=== PATIENT | female | born 1950 | race Caucasian/White ===

== ENCOUNTER 2021-02-25 09:44 | Emergency (ER) | payer MEDICARE, OTHER, SELFPAY ==
--- NOTE | ~2021-02-25 | XR_ITS ---
EXAMINATION: XR chest 2V DATE: 02/25/2021 10:24 INDICATION: Cough. TECHNIQUE: Frontal and lateral views of the chest were obtained. COMPARISON: Chest 2 views 01/23/2009 FINDINGS: There is mild scarring at the lung apices. No pleural effusion or pneumothorax. The heart s ize is normal. Pectus excavatum is noted. IMPRESSION: 1. Stable mild scarring at the lung apices. Reviewed, dictated and finalized at location A.
[2021-02-25 10:03] VITALS: BP 127/62; PULSE 126; RESP 18; TEMP 36.7; O2SAT 99
--- NOTE | 2021-02-25 10:14 | ED.GENADULT ---
HPI - General Adult General Chief complaint: Upper Respiratory Infection Stated complaint: Cough Source: patient Mode of arrival: ambulatory Limitations: no limitations History of Present Illness HPI narrative: Patient presents for evaluation of respiratory symptoms. She indicates she is experienced a nonproductive cough for the last 4 days. This morning she woke from sleep with a sore throat and feeling hoarse. No fever, chills, nausea, vomiting. She has been taking dextromethorphan for her symptoms. She has been taking an unknown allergy medication as well. Denies smoking. States that her daughter recently had a cold and also was treated for strep pharyngitis on Friday of last week. Her grandchildren are currently living with her and her daughter. No history of Covid. She has not been immunized for Covid. She states she was admitted for pneumonia about 5 years ago. She states that her symptoms currently are consistent with those that precipitated her hospitalization 5 years ago. Sounds like she is under the care of pulmonology, seeing them once annually. Related Data Home Medications Medication Instructions Recorded Confirmed montelukast 10 mg PO DAILY 02/25/21 02/25/21 Allergies Allergy/AdvReac Type Severity Reaction Status Date / Time Sulfa (Sulfonamide Allergy Mild Rash Unverified 02/25/21 10:10 Antibiotics) Review of Systems Review of Systems: Narrative: CONSTITUTIONAL: Denies fever, chills, or sweats. EYES: Denies visual changes, redness, or discharge. ENT: Reports sore throat. Denies rhinorrhea, congestion,or otalgia. CARDIOVASCULAR: Denies chest pain, palpitations, or edema. RESPIRATORY: Reports cough. Denies shortness of breath. GASTROINTESTINAL: Denies abdominal pain, nausea, vomiting, or diarrhea. GENITOURINARY: Denies dysuria or hematuria. SKIN: Denies rash or itching. MUSCULOSKELETAL: Denies back pain, joint pain, or myalgia. NEUROLOGIC: Denies headache, numbness, dizziness, or weakness. PSYCHIATRIC: Denies anxiety or depression. [facility] Past Medical History Medical History (Updated 02/25/21 @ 11:07 by Anthony Whaley, YUSUF, ) Reactive airway disease Surgical History Surgical History (Updated 02/25/21 @ 10:18 by Anthony Whaley, YUSUF, ) H/O lumpectomy History of delivery Family History Family History Mother No pertinent past medical history Social History Social History Alcohol intake: never Substance use: never Living arrangements: with family Gender identity (if verbalized by the patient): Female Spiritual care concerns: No Exam Narrative: Exam Narrative: GENERAL: Well-appearing, well-nourished, and in no acute distress. HEAD: Normocephalic, atraumatic. EYES: PERRLA and EOMI. ENT: Nares clear, no rhinorrhea or epistaxis. Mucous membranes moist. Oropharynx without tonsillar hypertrophy exudate or other lesions. Bilateral TMs pearly reynolds nonbulging NECK: Supple. No adenopathy or masses. No carotid bruits or JVD CHEST: Mild wheezing diffusely in posterior lung sales. Cough noted on exam. No respiratory distress. No wheezes rales or rhonchi HEART: Heart rate 122. Normal rhythm. No murmur heard. Normal peripheral pulses. ABDOMEN: Soft, nontender, nondistended, normal active bowel sounds. EXTREMITIES: Normal range of motion. No edema. SKIN: Warm, dry, no rash. NEURO: No focal deficits. Alert and oriented x3. PSYCH: Normal mood and affect. Course Course Emergency Course: This is a 70-year-old female who presented with complaints of cough and sore throat. Physical exam she was tachycardic. EKG was conducted and showed persistent tachycardia, although improved from my initial evaluation. Chest x-ray was indicative of mild scarring at the lung apices. I offered to give her a breathing treatment and steroids, which she declined.
--- NOTE | 2021-02-25 10:37 | ECG_ITS ---
Measurements Intervals [place] Rate: 112 P: 69 GA: 186 QRS: 74 QRSD: 88 T: 53 QT: 323 QTc: 441 Interpretive Statements SINUS TACHYCARDIA POSSIBLE LEFT ATRIAL ENLARGEMENT ABNORMAL ECG Electronically Signed On 02-25-2021 12:45:55 CDT by Seun Sandoval D.O.
== END 2021-02-25 11:14 | disposition home or self-care (01) ==
PROVIDERS: Emergency Provider Nurse Practitioner; PCP Physician Assistant
DX: J45.901 Unspecified asthma with (acute) exacerbation (principal); B37.0 Candidal stomatitis; Z20.822 Contact with and (suspected) exposure to COVID-19
CPT/HCPCS: 71046; 87081; 87426; 87880; 93005; 99213; C9803; G0463

== ENCOUNTER 2022-08-12 04:22 | Inpatient (IN) | payer MEDICARE, SELFPAY ==
[2022-08-12] VITALS (13 sets, daily range): BP systolic 97–157; BP diastolic 36–85; PULSE 90–106; RESP 16–94; TEMP 36.4–38.2; O2SAT 18–100; BMI 32.7
--- NOTE | ~2022-08-12 | CT_ITS ---
EXAMINATION: CT abdomen pelvis w con DATE: 08/12/2022 06:10 INDICATION: Lower abdominal pain TECHNIQUE: Computed tomography (CT) of the abdomen and pelvis was performed without intravenous contr ast. with 100 mL Omnipaque-350 The dose-length product was 1058.16 mGy-cm. COMPARISON: 12/28/2004 FINDINGS: Mild atelectasis in the right middle lobe and in the dependent lingula and left lower lobe. Heart siz e is normal. No pericardial or pleural effusion. Diffuse hepatic steatosis with focal sparing along t he yolanda hepatis. Dependently layering sludge versus gallstones in the gallbladder which is without w all thickening or pericholecystic inflammatory change to suggest acute cholecystitis. Pancreas, splee n, bilateral adrenal glands and kidneys are normal. Bladder, uterus and bilateral adnexa are normal. Normal small bowel and appendix. Mild diverticulosis along the sigmoid colon with localized wall thic kening and adjacent inflammatory stranding surrounding a diverticulum at the mid sigmoid colon consis tent with diverticular colitis. There are few tiny foci of gas within the median adjacent mesentery b ut no more remote free intraperitoneal gas consistent with microperforation. Mild lumbar and moderate lower thoracic spondylosis. Trace amount of intraperitoneal fluid in the deep pelvis. No abscess. No pathologically enlarged abdominal or pelvic lymphadenopathy. Mild lumbar and moderate lower thoracic spondylosis. IMPRESSION: 1. Acute sigmoid diverticulitis with microperforation but no abscess. 2. Diffuse hepatic steatosis. 3. Sludge versus gallstones in the dependent aspect of the otherwise normal gallbladder. Reviewed, dictated and finalized at location A. E [employer]SEM[employer] UP WORKER IMPRESSION: 1. Acute sigmoid diverticulitis with microperforation but no abscess. 2. Diffuse hepatic steatosis. 3. Sludge versus gallstones in the dependent aspect of the otherwise normal gal lbladder.
--- NOTE | ~2022-08-12 | CT_ITS ---
CT Abdomen and Pelvis with contrast. History: Diverticulitis with perforation. Spiral CT of the abdomen and pelvis was performed after the administration of intravenous contrast. 1 00 cc of Omnipaque 350 was administered intravenously without complication. Dose reduction technique was used on this scan by utilizing automated exposure control and iterative reconstruction technique. The dose-length product (DLP) was 212.11 mGy-cm. COMPARISON: 08/12/2022 Findings: Scans through the lung bases demonstrate minimal pleural effusions, with probable patchy bi basilar atelectatic changes. Diffuse fatty infiltration of the liver again noted. There is cholelithiasis and/or gallbladder sludg e. The spleen, pancreas, adrenals and kidneys are within normal limits. No evidence of aortic aneury sm. No lymphadenopathy is seen. There is no evidence of bowel obstruction. Extensive wall thickening of the sigmoid colon is present. There are several pockets of fluid about the sigmoid colon, compatible with abscesses and/or phlegmo nous change, with several small bubbles of extraluminal air present. Collection along the right side of the sigmoid colon measures approximately 4.3 x 2.2 cm (axial image 140). Probable developing colle ction in the left posterior pelvis (axial image 136), possibly a small more superior fluid collection (axial image 118). Extensive inflammatory changes are present in the mesentery and perirectal fat. Images through the pelvis were performed. Urinary bladder unremarkable. No adnexal mass evident. Impression: Findings compatible with sigmoid diverticulitis, with 3 probable small abscesses or developing absces ses/phlegmons, as detailed above. Several small bubbles of free air are again present, consistent wit h perforation. Diffuse fatty infiltration of liver. Cholelithiasis and/or gallbladder sludge. Minimal pleural effusions with bibasilar atelectatic change. Reviewed, dictated and finalized at location M. SIOLOGIST Impression: Findings compatible with sigmoid diverticulitis, with 3 probable small abscesse s or developing abscesses/phlegmons, as detailed above. Several small bubbles o f free air are again present, consistent with perforation. Diffuse fatty infiltration of liver. Cholelithiasis and/or gallbladder sludge. Minimal pleural effusions with bibasilar atelectatic change.
[2022-08-12] MEDS: SODIUM CHLORIDE 0.9% IV 1,000 ML 999 ML IV CONT (04:46)
[2022-08-12] MEDS: HYDROmorphone HCL INJ (*CRX) 1 MG/ML SYR IV PUSH (04:46)
[2022-08-12 04:48] LABS: Basophils Percent Auto 0.2 % (0.2-1.2); Eosinophils Absolute Auto 0.1 K/mm3 (0-0.3); Eosinophils Percent Auto 0.6 % (0-4.4); Hematocrit 41.4 % (37.0-47.0); Hemoglobin 13.8 g/dL (12.0-15.0); Immature Granulocyte Absolute 0.15 K/mm3 (0.00-0.031); Immature Granulocyte Percent A 1.1 % (0-0.5); Lymphocytes Absolute Auto 1.83 K/mm3 (0.9-3.2); Lymphocytes Percent Auto 13.9 % (18.3-44.2); Mean Corpuscular HGB Conc 33.3 g/dl (32-36); Mean Corpuscular Hemoglobin 29.9 pg (26-34); Mean Corpuscular Volume 89.6 fl (80-100); Mean Platelet Volume 9.9 fl (7.4-10.4); Monocytes Absolute Auto 0.4 K/mm3 (0.1-0.6); Neutrophils Absolute Auto 10.7 K/mm3 (1.3-6.7); Neutrophils Percent Auto 81.2 % (45.5-73.1); Platelet Count Result 228 k/mm3 (150-375); Red Blood Count 4.62 M/mm3 (4.2-5.4); Red Cell Distribution Width 15.1 % (11.5-14.5); White Blood Count 13.2 K/mm3 (4.5-10.0)
--- NOTE | 2022-08-12 04:50 | ED.ABDPAIN ---
HPI - Abdominal Pain General Chief Complaint: Abdominal Pain Stated Complaint: abd pain Time Seen by Provider: 08/12/22 04:37 History of Present Illness HPI narrative: 72-year-old female presenting to the emergency department for evaluation of lower abdominal pain that started approximately 2 AM. Patient reports that she had been feeling fine during the day and she had fallen asleep in her chair and she woke up at 2 AM and was transitioning to bed. Patient reports that she was walking upstairs she had onset of lower abdominal cramping. Patient additionally felt that if she had had a bowel movement that this would improve symptoms but patient states it was too uncomfortable to sit down. Patient describes pain as bilateral lower abdominal pain. Patient denies any radiation of the pain. Patient denies any associated back pain with this. Patient also denies any associated nausea vomiting or change in bowel habits. Patient does have a prior surgical history of a approximately 35 years ago. Patient does not suspect that she has had a prior cholecystectomy or appendectomy. Related Data Home Medications Medication Instructions Recorded Confirmed montelukast 10 mg tablet 10 mg PO DAILY 02/25/21 02/25/21 Allergies Allergy/AdvReac Type Severity Reaction Status Date / Time Sulfa (Sulfonamide Allergy Mild Rash Verified 08/12/22 04:42 Antibiotics) Review of Systems Review of Systems: CONSTITUTIONAL: Denies fever, chills, or sweats. EYES: Denies visual changes, redness, or discharge. ENT: Denies rhinorrhea, congestion, sore throat, or otalgia. CARDIOVASCULAR: Denies chest pain, palpitations, or edema. RESPIRATORY: Denies cough or dyspnea. GASTROINTESTINAL: See HPI GENITOURINARY: Denies dysuria or hematuria. SKIN: Denies rash or itching. MUSCULOSKELETAL: Denies back pain, joint pain, or myalgia. NEUROLOGIC: Denies headache, numbness, or weakness. [facility] Past Medical History Medical History (Updated 08/12/22 @ 06:59 by Cirilo Rae MD) Reactive airway disease Surgical History Surgical History (Updated 02/25/21 @ 10:18 by Anthony Whaley, YUSUF, ) H/O lumpectomy History of delivery Family History Family History Mother No pertinent past medical history Social History Social History Alcohol intake: never Substance use: never Gender identity (if verbalized by the patient): Female Spiritual care concerns: No Exam Narrative: APPEARANCE: Well appearing, no pain, no distress, well-nourished. HEAD: normocephalic, atraumatic. EYES: PERRLA/EOMI, conjunctivae clear. NOSE: Normal no drainage EARS:TMS clear with good light reflex. THROAT: Pharynx clear, no exudate. NECK: Supple. No adenopathy, no masses. RESPIRATORY: Airway patent, respirations nonlabored. Clear to auscultation bilaterally, no rales, rhonchi, wheezing. CARDIOVASCULAR: Regular rate and rhythm without murmurs rubs or gallops. ABDOMINAL: Decreased bowel sounds, lower abdominal tenderness bilaterally. MUSCULOSKELETAL: Moves all extremities. Strength/ROM intact, No edema, No calf tenderness. NEURO: Alert. Cranial nerves II through XII intact. Grossly intact SKIN: Warm, dry. Normal Color Course Course Emergency Course: Patient did have lower abdominal tenderness localized peritonitis. CT scan was ordered to rule out perforation, appendicitis, colitis, diverticulitis. Patient CT scan did show evidence of sigmoid diverticulitis with perforation without abscess. Patient was started on Zosyn. Blood cultures are pending. Patient was also treated with IV fluids. Case was discussed with surgery and they will see the patient as consult. Patient was admitted to the hospitalist and made n.p.o. Patient and family were updated on the results of the work-up and plan for admission. All questions and concerns were ad
[2022-08-12 04:51] LABS: Add Urine Microscopic? YES; Appearance Urine Clear (Clear); Bilirubin Urine Negative (Negative); Blood Urine Trace-Intact (Negative); Color Urine Light Yellow (Yellow); Glucose Urine UA Negative (Negative); Ketones Urine Negative (Negative); Leukocyte Esterase Ur Negative LEU/UL (Negative); Nitrate Urine Negative (Negative); Protein Urine Negative (Negative); Urobilinogen Urine 0.2 mg/dL (<2.0)
[2022-08-12 04:57] LABS: Mucus Urine Rare /lpf; Squamous Epithelial Cell Urine Occasional /hpf (Few); WBC Urine 0-3 /hpf
[2022-08-12 05:02] LABS: Alanine Aminotransferase 38 U/L (6-35); Albumin Level 4.5 g/dL (3.5-5.1); Alkaline Phosphatase 144 U/L (38-126); Anion Gap 8 mmol/L (8-16); Aspartate Amino Transferase 32 U/L (14-36); Bilirubin,Total 0.6 mg/dL (0.2-1.3); Blood Urea Nitrogen 16 mg/dL (7-17); Carbon Dioxide 29 mmol/L (22-30); Chloride 104 mmol/L (98-107); Estimated CRCL calculation 78 ml/min; Estimated Glomerular Filt Rate > 60; Glucose 128 mg/dL (65-110); Potassium 3.7 mmol/L (3.4-5.0); Sodium 141 mmol/L (137-145)
[2022-08-12 07:35] LABS: Prothrombin Time 13.2 Seconds (11.1-14.7)
[2022-08-12 07:36] LABS: Partial Thromboplastin Time 31.3 SECONDS (22.3-36.8)
[2022-08-12] MEDS: SODIUM CHLORIDE 0.9% IV 1,000 ML 100 ML IV CONT ×2 (08:02→16:01)
[2022-08-12] MEDS: ONDANSETRON INJ 4 MG/2 ML VIAL IV PUSH (08:02)
[2022-08-12] MEDS: HYDROmorphone HCL INJ (*CRX) 1 MG/ML SYR 0.5 MG IV PUSH ×3 (08:49→19:56)
[2022-08-12 08:52] LABS: Influenza A QL RT-PCR Negative (Negative); Influenza B QL RT-PCR Negative (Negative); SARS-CoV-2 RNA PCR Negative
--- NOTE | 2022-08-12 09:03 | ADMGEN ---
This patient, Breanna Anton, was admitted to 2 Medical Room 241-01. Patient/family oriented to hospital policies and general routines including ID bracelet, bed and alarms, visiting hours, pain management, procedures, bathroom and other care routines, personal items, smoking policy, room service/diet, and visiting hours. Information on how to activate the Rapid Response Team has been discussed. Patient/Family are encouraged to report perceived risks to care and to ask questions if they do not understand what they are told or what they should do.
--- NOTE | 2022-08-12 12:17 | PM.IMHP ---
H&P: HPI History of Present Illness Date/Time: 08/12/22 12:17 Chief Complaint: abdominal pain Narrative: ED-HPI narrative: 72-year-old female presenting to the emergency department for evaluation of lower abdominal pain that started approximately 2 AM.? Patient reports that she had been feeling fine during the day and she had fallen asleep in her chair and she woke up at 2 AM and was transitioning to bed.? Patient reports that she was walking upstairs she had onset of lower abdominal cramping.? Patient additionally felt that if she had had a bowel movement that this would improve symptoms but patient states it was too uncomfortable to sit down.? Patient describes pain as bilateral lower abdominal pain.? Patient denies any radiation of the pain.? Patient denies any associated back pain with this.? Patient also denies any associated nausea vomiting or change in bowel habits.? Patient does have a prior surgical history of a approximately 35 years ago.? Patient does not suspect that she has had a prior cholecystectomy or appendectomy. patient is 72-year-old female with no significant GI history presented emergency department with complaint of low abdominal pain, patient states she wants to have a BM but pain is so severe unable to sit on the toilet, emergency department to further evaluate patient had a CT scan of the abdomen it showed acute sigmoid diverticulitis with microperforation but no abscess. patient started on Zosyn will continue with bowel rest except sips of water, will continue conservative management patient be seen surgery service and further recommendation to follow. patient admitted as a and patient with diverticulitis and microperforation, patient will stay in the hospital for 2 midnights. Review of Systems Review of Systems: CONSTITUTIONAL: Denies fever, chills, or sweats. EYES: Denies visual changes, redness, or discharge. ENT: Denies rhinorrhea, congestion, sore throat, or otalgia. CARDIOVASCULAR: Denies chest pain, palpitations, or edema. RESPIRATORY: Denies cough or dyspnea. GASTROINTESTINAL: See HPI GENITOURINARY: Denies dysuria or hematuria. SKIN: Denies rash or itching. MUSCULOSKELETAL: Denies back pain, joint pain, or myalgia. NEUROLOGIC: Denies headache, numbness, or weakness. [facility] Past Medical History Medical History (Updated 08/12/22 @ 06:59 by Cirilo Rae MD) Reactive airway disease Surgical History Surgical History (Updated 02/25/21 @ 10:18 by Anthony Whaley, IT PROGRAM MANAGER, ) H/O lumpectomy History of delivery Family History Family History Mother No pertinent past medical history Social History Social History Smoking status: Never smoker Alcohol intake: never Substance use: never Lack of Transportation: No Lack of Food: Never True Current Housing: I Have Housing Concerned About Future Housing: No Difficulty Paying Gas/Electric Bills: No Difficulty Paying for Meds: No Currently Unemployed: No Education: Bachelor's Degree Difficulty w/ Childcare or Family Care: No Gender identity (if verbalized by the patient): Female Spiritual care concerns: No Meds Home Medications and Allergies Home Medications Medication Instructions Recorded Confirmed Type montelukast 10 mg tablet 10 mg PO DAILY 02/25/21 02/25/21 History Allergies Allergy/AdvReac Type Severity Reaction Status Date / Time Sulfa (Sulfonamide Allergy Mild Rash Verified 08/12/22 10:45 Antibiotics) Vital Signs Vital Signs - 24 hr 08/12/22 04:25 08/12/22 04:55 08/12/22 05:01 Temperature 97.6 F Pulse Rate 95 Respiratory Rate 18 Blood Pressure 157/85 H 122/66 Pulse Oximetry 97 100 100 Oxygen Delivery Room Air 08/12/22 05:02 08/12/22 05:15 08/12/22 05:30 Temperature Pulse Rate Respiratory Rate Blood Pressure
--- NOTE | 2022-08-12 13:38 | PM.CNGS ---
Assessment and Plan Assessment and plan (1) Diverticulitis of colon with perforation: Code(s): K57.20 - Diverticulitis of large intestine with perforation and abscess without bleeding Status: Acute Assessment and Plan: Have reviewed the CT and discussed the findings with the patient. She is evidence of sigmoid diverticulitis with microperforation. She is hemodynamically stable and her exam only shows focal tenderness without distant peritoneal signs. Will continue management with IV antibiotics, bowel rest, and IV fluids at this time. Will slowly introduce diet if her symptoms are continuing to improve. Discussed with patient that if she shows signs of sepsis, peritonitis, or other worsening findings, she could require emergent exploratory laparotomy. History of Present Illness Consult details Consult date: 08/12/22 Reason for consult: other (Diverticulitis) Narrative: This is a 72-year-old woman who I am asked to see for diverticulitis with microperforation. She presented to the emergency department this morning with lower pain that started middle the night. She had never experienced pain like this the past. She has no prior history diverticulitis. She did have a colonoscopy several years ago. She states that her mother has had diverticulitis. She denies any family history of colorectal cancer. She denies any fevers, nausea, vomiting, or change in bowel habits. She denies any hematochezia or melena. CT emergency department showed evidence of sigmoid diverticulitis with micro perforation. There was no evidence of abscess were distant free air. She was then admitted for further treatment. Review of Systems Review of Systems: All systems reviewed & are unremarkable except as noted in HPI and below Constitutional: Constitutional: Denies chills and Denies fever(s) Eyes: Eyes: Denies change in vision ENT: Denies hearing loss, Denies neck pain and Denies sore throat Cardiovascular: Cardiovascular: Denies chest pain and Denies dyspnea Respiratory: Respiratory: Denies cough, Denies dyspnea and Denies wheezing Gastrointestinal: Gastrointestinal: Reports as per HPI Genitourinary: Genitourinary: Denies hematuria and Denies dysuria Musculoskeletal: Musculoskeletal: Denies arthralgias, Denies joint swelling and Denies neck pain Allergic/Immunologic: Allergic/Immunologic: Denies wheezing [facility] Past Medical History Medical History (Updated 08/12/22 @ 06:59 by Cirilo Rae MD) Reactive airway disease Surgical History Surgical History (Updated 02/25/21 @ 10:18 by YUSUF Rowan, ) H/O lumpectomy History of delivery Family History Family History (Updated 08/12/22 @ 13:41 by Nolan Tijerina DO) Mother No pertinent past medical history Diverticulitis large intestine Social History Social History Smoking status: Never smoker Alcohol intake: never Substance use: never Lack of Transportation: No Lack of Food: Never True Current Housing: I Have Housing Concerned About Future Housing: No Difficulty Paying Gas/Electric Bills: No Difficulty Paying for Meds: No Currently Unemployed: No Education: Bachelor's Degree Difficulty w/ Childcare or Family Care: No Gender identity (if verbalized by the patient): Female Spiritual care concerns: No Meds Home Medications and Allergies Home Medications Medication Instructions Recorded Confirmed Type montelukast 10 mg tablet 10 mg PO DAILY 02/25/21 02/25/21 History Allergies Allergy/AdvReac Type Severity Reaction Status Date / Time Sulfa (Sulfonamide Allergy Mild Rash Verified 08/12/22 10:45 Antibiotics) Vital Signs Vital Signs - 24 hr 08/12/22 04:25 08/12/22 04:55 08/12/22 05:01 Temperature 36.4 C Pulse Rate 95 Respiratory Rate 18 Blood Pressure 157/85 H 122/66 Pulse Oximetry 97 100 100 Oxygen Delivery Leonora
[2022-08-12] MEDS: SODIUM CHLORIDE 0.9% IV 250 ML IV CONT (15:27)
--- NOTE | 2022-08-12 15:28 | PC.NURSE ---
bolus administered from current IV bag
[2022-08-13] MEDS: HYDROmorphone HCL INJ (*CRX) 1 MG/ML SYR 0.5 MG IV PUSH ×4 (00:31→20:22)
[2022-08-13] MEDS: SODIUM CHLORIDE 0.9% IV 1,000 ML 100 ML IV CONT (03:19)
[2022-08-13 05:29] VITALS: BP 110/50; PULSE 108; RESP 16; TEMP 36.9; O2SAT 94
[2022-08-13 06:07] LABS: Hematocrit 34.3 % (37.0-47.0); Hemoglobin 11.1 g/dL (12.0-15.0); Mean Corpuscular HGB Conc 32.4 g/dl (32-36); Mean Corpuscular Hemoglobin 29.8 pg (26-34); Mean Corpuscular Volume 92.2 fl (80-100); Mean Platelet Volume 11.1 fl (7.4-10.4); Platelet Count Result 177 k/mm3 (150-375); Red Blood Count 3.72 M/mm3 (4.2-5.4); Red Cell Distribution Width 15.2 % (11.5-14.5); White Blood Count 18.2 K/mm3 (4.5-10.0)
[2022-08-13 06:24] LABS: Alanine Aminotransferase 34 U/L (6-35); Albumin Level 3.4 g/dL (3.5-5.1); Alkaline Phosphatase 81 U/L (38-126); Anion Gap 6 mmol/L (8-16); Aspartate Amino Transferase 32 U/L (14-36); Bilirubin,Total 1.5 mg/dL (0.2-1.3); Blood Urea Nitrogen 16 mg/dL (7-17); Calcium 7.9 mg/dL (8.4-10.2); Carbon Dioxide 26 mmol/L (22-30); Chloride 103 mmol/L (98-107); Estimated CRCL calculation 64 ml/min; Estimated Glomerular Filt Rate > 60; Glucose 113 mg/dL (65-110); Magnesium 1.7 mg/dL (1.6-2.3); Potassium 3.6 mmol/L (3.4-5.0); Sodium 135 mmol/L (137-145)
--- NOTE | 2022-08-13 08:12 | PC.NURSE ---
Patient's IV positional and in antecubital vein. Offered to move IV site - patient refused and states she prefers to deal with it and keep her arm straight.
--- NOTE | 2022-08-13 13:01 | PM.PNGS ---
Progress Note: A&P Assessment and Plan (1) Diverticulitis of colon with perforation: Code(s): K57.20 - Diverticulitis of large intestine with perforation and abscess without bleeding Status: Acute Assessment and Plan: Patient feeling a little better, even though WBC up from yesterday. Will try clear liquids today. Repeat labs in AM. Continue Zosyn IV. Subjective Subjective Date/Time Seen: 08/13/22 13:01 Interval history: Pain improving. Fever yesterday, but none since 2pm. Passing flatus. Exam GI: Inspection: non-distended GI Palp: Yes Tenderness to palpation present (GI) (LLQ) Objective Data Vital Signs Vital Signs: Vital Signs - 24 hr 08/12/22 14:00 08/12/22 20:00 08/12/22 20:22 Temperature 38.2 C H 37.0 C Pulse Rate 106 H 105 H Respiratory Rate 94 H 16 Blood Pressure 97/36 L 122/47 L Pulse Oximetry 18 L 96 Oxygen Delivery Room Air 08/13/22 05:29 08/13/22 08:07 Temperature 36.9 C Pulse Rate 108 H Respiratory Rate 16 Blood Pressure 110/50 L Pulse Oximetry 94 Oxygen Delivery Room Air Intake/Output Intake/Output: Intake & Output 08/10/22 08/11/22 08/12/22 08/13/22 23:59 23:59 23:59 23:59 Intake Total 2400 1100 Balance 2400 1100 Meds/Results Medications: Active Medications Generic Name Dose Route Start Last Admin Trade Name Freq PRN Reason Stop Dose Admin Acetaminophen 1,000 mg 08/13/22 13:00 Acetaminophen 500 Mg Tablet PO Q6H PRN Mild Pain (1-3) or Fever Hydromorphone HCl 0.5 mg 08/12/22 06:59 08/13/22 10:37 Hydromorphone Hcl Inj (*Crx) 1 Mg/Ml Syr IV PUSH 0.5 mg Q4H PRN Administration Pain Rated 7-10 Piperacillin/Tazobactam/Dextrose 3.375 gm in 50 mls @ 100 mls/hr 08/12/22 14:00 08/13/22 12:10 Zosyn 3.375 Gm/D5w 50ml Pm IVPB 100 mls/hr Q6HR PAO Administration Ondansetron HCl 4 mg 08/12/22 06:59 Ondansetron Inj 4 Mg/2 Ml Vial IV PUSH Q4H PRN Nausea Radiology Results: ITS Impressions Abdomen/Pelvis CT 08/12/22 09:58 IMPRESSION: 1. Acute sigmoid diverticulitis with microperforation but no abscess. 2. Diffuse hepatic steatosis. 3. Sludge versus gallstones in the dependent aspect of the otherwise normal gallbladder. Labs Labs: Laboratory Results - last 24 hr 08/13/22 08/13/22 05:05 05:05 WBC 18.2 H RBC 3.72 L Hgb 11.1 L Hct 34.3 L MCV 92.2 MCH 29.8 MCHC 32.4 RDW 15.2 H Plt Count 177 MPV 11.1 H Sodium 135 L Potassium 3.6 Chloride 103 Carbon Dioxide 26 Anion Gap 6 L BUN 16 Creatinine 0.80 Estim Creat Clear Calc 64 Estimated GFR > 60 Glucose 113 H Calcium 7.9 L Magnesium 1.7 Total Bilirubin 1.5 H AST 32 ALT 34 Alkaline Phosphatase 81 Total Protein 6.0 L Albumin 3.4 L
--- NOTE | 2022-08-13 13:28 | PM.IMPN ---
Progress Note: A&P Assessment and Plan (1) Diverticulitis of colon with perforation: Code(s): K57.20 - Diverticulitis of large intestine with perforation and abscess without bleeding Status: Acute Assessment and Plan: ED-HPI narrative: 72-year-old female presenting to the emergency department for evaluation of lower abdominal pain that started approximately 2 AM.? Patient reports that she had been feeling fine during the day and she had fallen asleep in her chair and she woke up at 2 AM and was transitioning to bed.? Patient reports that she was walking upstairs she had onset of lower abdominal cramping.? Patient additionally felt that if she had had a bowel movement that this would improve symptoms but patient states it was too uncomfortable to sit down.? Patient describes pain as bilateral lower abdominal pain.? Patient denies any radiation of the pain.? Patient denies any associated back pain with this.? Patient also denies any associated nausea vomiting or change in bowel habits.? Patient does have a prior surgical history of a approximately 35 years ago.? Patient does not suspect that she has had a prior cholecystectomy or appendectomy. 08/13/2022 interval history: patient is 72-year-old female with no significant GI history presented emergency department with complaint of low abdominal pain, patient stated she wants to have a BM but pain is so severe unable to sit on the toilet, emergency department to further evaluate patient had a CT scan of the abdomen it showed acute sigmoid diverticulitis with microperforation but no abscess.Today patient states pain is little better in passing gas, patient started on Zosyn will continue with bowel rest except sips of water, will continue conservative management patient will be seen surgery service and further recommendation to follow. (2) Reactive airway disease: Code(s): J45.909 - Unspecified asthma, uncomplicated Status: Acute Assessment and Plan: remains clinically stable will continue Singulair and start bronchodilator as needed. Subjective Date/time seen: 08/13/22 13:28 ED-HPI narrative: 72-year-old female presenting to the emergency department for evaluation of lower abdominal pain that started approximately 2 AM.? Patient reports that she had been feeling fine during the day and she had fallen asleep in her chair and she woke up at 2 AM and was transitioning to bed.? Patient reports that she was walking upstairs she had onset of lower abdominal cramping.? Patient additionally felt that if she had had a bowel movement that this would improve symptoms but patient states it was too uncomfortable to sit down.? Patient describes pain as bilateral lower abdominal pain.? Patient denies any radiation of the pain.? Patient denies any associated back pain with this.? Patient also denies any associated nausea vomiting or change in bowel habits.? Patient does have a prior surgical history of a approximately 35 years ago.? Patient does not suspect that she has had a prior cholecystectomy or appendectomy. 08/13/2022 interval history: patient is 72-year-old female with no significant GI history presented emergency department with complaint of low abdominal pain, patient stated she wants to have a BM but pain is so severe unable to sit on the toilet, emergency department to further evaluate patient had a CT scan of the abdomen it showed acute sigmoid diverticulitis with microperforation but no abscess.Today patient states pain is little better in passing gas, patient started on Zosyn will continue with bowel rest except sips of water, will continue conservative management patient will be seen surgery service and further recommendation to follow. Exam Narrative: Patient is comfortable, NAD HEENT: eyes are clear and none icteric LUNGS: normal respiratory effort ABD: distended Lower extremities: no edema SKIN: nonjaundiced Neuro: grossly intact. Obje
[2022-08-13 14:15] VITALS: BP 111/55; PULSE 107; RESP 16; TEMP 37; O2SAT 94
[2022-08-13] MEDS: ACETAMINOPHEN 500 MG TABLET 1000 MG PO (15:19)
[2022-08-13 20:17] VITALS: BP 125/70; PULSE 109; RESP 20; TEMP 36.9; O2SAT 96
[2022-08-14 03:20] VITALS: BP 107/67; PULSE 116; RESP 20; TEMP 37.5; O2SAT 97
[2022-08-14] MEDS: HYDROmorphone HCL INJ (*CRX) 1 MG/ML SYR 0.5 MG IV PUSH ×4 (03:27→21:28)
[2022-08-14 05:52] LABS: Hematocrit 32.4 % (37.0-47.0); Hemoglobin 10.6 g/dL (12.0-15.0); Mean Corpuscular HGB Conc 32.7 g/dl (32-36); Mean Corpuscular Volume 88.5 fl (80-100); Mean Platelet Volume 10.6 fl (7.4-10.4); Platelet Count Result 174 k/mm3 (150-375); Red Blood Count 3.66 M/mm3 (4.2-5.4); Red Cell Distribution Width 14.9 % (11.5-14.5); White Blood Count 18.7 K/mm3 (4.5-10.0)
[2022-08-14 06:08] LABS: Alanine Aminotransferase 29 U/L (6-35); Albumin Level 3.1 g/dL (3.5-5.1); Alkaline Phosphatase 81 U/L (38-126); Anion Gap 6 mmol/L (8-16); Aspartate Amino Transferase 31 U/L (14-36); Bilirubin,Total 1.3 mg/dL (0.2-1.3); Blood Urea Nitrogen 12 mg/dL (7-17); Calcium 8.1 mg/dL (8.4-10.2); Carbon Dioxide 25 mmol/L (22-30); Chloride 106 mmol/L (98-107); Estimated CRCL calculation 73 ml/min; Estimated Glomerular Filt Rate > 60; Glucose 139 mg/dL (65-110); Magnesium 1.9 mg/dL (1.6-2.3); Potassium 3.2 mmol/L (3.4-5.0); Sodium 137 mmol/L (137-145)
[2022-08-14] MEDS: POTASSIUM CHLORIDE 20 MEQ TABLET 40 MEQ PO (08:53)
--- NOTE | 2022-08-14 09:34 | PM.PNGS ---
Progress Note: A&P Assessment and Plan (1) Diverticulitis of colon with perforation: Code(s): K57.20 - Diverticulitis of large intestine with perforation and abscess without bleeding Status: Acute Assessment and Plan: WBC still up slightly today at 18,700, abdominal pain about the same today but overall improved since admission. Still seems very tender on exam. Repeat CT abdomen/pelvis to re-evaluate Continue IV Zosyn. Plan I have discussed the patient's case and plan of care with Dr. Tijerina. Subjective Subjective Date/Time Seen: 08/14/22 09:34 Patient reports: no new complaints, tolerating liquids well, flatus, no bowel movement and afebrile Interval history: Chart reviewed. Patient reports feeling about the same as yesterday. She is comfortable at rest, but mostly only had pain across her lower abdomen with movement and bending. She reports her abdominal pain is still much better than when she presented to the ER. No nausea or vomiting, but feels bloated. Has not had a BM since Friday, but is passing lots of flatus. Review of Systems Review of Systems: All systems reviewed & are unremarkable except as noted in HPI and below Exam Const: General: alert; No acute distress Orientation/consciousness: patient oriented x3 GI: Inspection: other (mildly distended) GI Palp: Yes Soft to palpation, Yes Tenderness to palpation present (GI) (LLQ, RLQ and mild TTP across upper abdomen) and Yes Guarding due to palpation present (GI) (LLQ) Auscultation: normal bowel sounds Objective Data Vital Signs Vital Signs: Vital Signs - 24 hr 08/13/22 14:15 08/13/22 20:17 08/13/22 20:00 Temperature 98.6 F 98.5 F Pulse Rate 107 H 109 H Respiratory Rate 16 20 Blood Pressure 111/55 L 125/70 Pulse Oximetry 94 96 Oxygen Delivery Room Air 08/14/22 03:20 Temperature 99.5 F Pulse Rate 116 H Respiratory Rate 20 Blood Pressure 107/67 Pulse Oximetry 97 Oxygen Delivery Intake/Output Intake/Output: Intake & Output 08/11/22 08/12/22 08/13/22 08/14/22 23:59 23:59 23:59 23:59 Intake Total 2400 2960 340 Balance 2400 2960 340 Meds/Results Medications: Active Medications Generic Name Dose Route Start Last Admin Trade Name Freq PRN Reason Stop Dose Admin Acetaminophen 1,000 mg 08/13/22 13:00 08/13/22 15:19 Acetaminophen 500 Mg Tablet PO 1,000 mg Q6H PRN Administration Mild Pain (1-3) or Fever Hydromorphone HCl 0.5 mg 08/12/22 06:59 08/14/22 08:53 Hydromorphone Hcl Inj (*Crx) 1 Mg/Ml Syr IV PUSH 0.5 mg Q4H PRN Administration Pain Rated 7-10 Piperacillin/Tazobactam/Dextrose 3.375 gm in 50 mls @ 100 mls/hr 08/12/22 14:00 08/14/22 06:16 Zosyn 3.375 Gm/D5w 50ml Pm IVPB Infused Q6HR PAO Infusion Ondansetron HCl 4 mg 08/12/22 06:59 Ondansetron Inj 4 Mg/2 Ml Vial IV PUSH Q4H PRN Nausea Radiology Results: ITS Impressions Abdomen/Pelvis CT 08/12/22 09:58 IMPRESSION: 1. Acute sigmoid diverticulitis with microperforation but no abscess. 2. Diffuse hepatic steatosis. 3. Sludge versus gallstones in the dependent aspect of the otherwise normal gallbladder. Labs Labs: Laboratory Results - last 24 hr 08/14/22 08/14/22 05:07 05:07 WBC 18.7 H RBC 3.66 L Hgb 10.6 L Hct 32.4 L MCV 88.5 MCH 29.0 MCHC 32.7 RDW 14.9 H Plt Count 174 MPV 10.6 H Sodium 137 Potassium 3.2 L Chloride 106 Carbon Dioxide 25 Anion Gap 6 L BUN 12 Creatinine 0.70 Estim Creat Clear Calc 73 Estimated GFR > 60 Glucose 139 H Calcium 8.1 L Magnesium 1.9 Total Bilirubin 1.3 AST 31 ALT 29 Alkaline Phosphatase 81 Total Protein 6.0 L Albumin 3.1 L
[2022-08-14] MEDS: ACETAMINOPHEN 500 MG TABLET 1000 MG PO (14:15)
--- NOTE | 2022-08-14 15:51 | PM.IMPN ---
Progress Note: A&P Assessment and Plan (1) Diverticulitis of colon with perforation: Code(s): K57.20 - Diverticulitis of large intestine with perforation and abscess without bleeding Status: Acute Assessment and Plan: ED-HPI narrative: 72-year-old female presenting to the emergency department for evaluation of lower abdominal pain that started approximately 2 AM.? Patient reports that she had been feeling fine during the day and she had fallen asleep in her chair and she woke up at 2 AM and was transitioning to bed.? Patient reports that she was walking upstairs she had onset of lower abdominal cramping.? Patient additionally felt that if she had had a bowel movement that this would improve symptoms but patient states it was too uncomfortable to sit down.? Patient describes pain as bilateral lower abdominal pain.? Patient denies any radiation of the pain.? Patient denies any associated back pain with this.? Patient also denies any associated nausea vomiting or change in bowel habits.? Patient does have a prior surgical history of a approximately 35 years ago.? Patient does not suspect that she has had a prior cholecystectomy or appendectomy. 08/13/2022 interval history: patient is 72-year-old female with no significant GI history presented emergency department with complaint of low abdominal pain, patient stated she wants to have a BM but pain is so severe unable to sit on the toilet, emergency department to further evaluate patient had a CT scan of the abdomen it showed acute sigmoid diverticulitis with microperforation but no abscess.Today patient states pain is little better in passing gas, patient started on Zosyn will continue with bowel rest except sips of water, will continue conservative management patient will be seen surgery service and further recommendation to follow. (2) Reactive airway disease: Code(s): J45.909 - Unspecified asthma, uncomplicated Status: Acute Assessment and Plan: remains clinically stable will continue Singulair and start bronchodilator as needed. Subjective Date/time seen: 08/14/22 15:51 08/14/2022 interval history: patient is 72-year-old female with no significant GI history presented emergency department with complaint of low abdominal pain, patient stated she wants to have a BM but pain is so severe unable to sit on the toilet, emergency department to further evaluate patient had a CT scan of the abdomen it showed acute sigmoid diverticulitis with microperforation but no abscess.Today patient states pain is little better in passing gas, however no BM, seen by surgery services, had a repeat CT scan today showed persisting sigmoid diverticulitis with micoro perforation and concerning for small abscesses, will continue Zosyn will continue with bowel rest except sips of water, will continue conservative management patient will be seen surgery service and further recommendation to follow. Exam Narrative: Patient is comfortable, NAD HEENT: eyes are clear and none icteric LUNGS: normal respiratory effort ABD: distended Lower extremities: no edema SKIN: nonjaundiced Neuro: grossly intact. Objective Data Vital Signs Vital Signs: Vital Signs - 24 hr 08/13/22 20:17 08/13/22 20:00 08/14/22 03:20 Temperature 98.5 F 99.5 F Pulse Rate 109 H 116 H Respiratory Rate 20 20 Blood Pressure 125/70 107/67 Pulse Oximetry 96 97 Oxygen Delivery Room Air 08/14/22 08:00 Temperature Pulse Rate Respiratory Rate Blood Pressure Pulse Oximetry Oxygen Delivery Room Air Intake/Output Intake/Output: Intake & Output 08/11/22 08/12/22 08/13/22 08/14/22 23:59 23:59 23:59 23:59 Intake Total 2400 2960 930 Balance 2400 2960 930 Meds/Results Medications: Active Medications Generic Name Dose Route Start Last Admin Trade Name Freq PRN Reason Stop Dose Admin Acetaminophen 500 mg 08/14/22 14:48 Acetaminophen 500 Mg Tablet PO Q6H
[2022-08-14 16:22] VITALS: BP 116/52; PULSE 101; RESP 17; TEMP 36.1; O2SAT 95
[2022-08-14 21:36] VITALS: BP 129/65; PULSE 104; RESP 18; TEMP 36.6; O2SAT 98
[2022-08-14 21:47] VITALS: O2SAT 98
[2022-08-15] MEDS: HYDROmorphone HCL INJ (*CRX) 1 MG/ML SYR IV PUSH ×2 (01:43→10:35)
[2022-08-15 05:36] VITALS: BP 113/58; PULSE 92; RESP 18; TEMP 36.6; O2SAT 96
[2022-08-15 05:54] LABS: Hematocrit 36.3 % (37.0-47.0); Hemoglobin 12.1 g/dL (12.0-15.0); Mean Corpuscular HGB Conc 33.3 g/dl (32-36); Mean Corpuscular Hemoglobin 29.4 pg (26-34); Mean Corpuscular Volume 88.3 fl (80-100); Mean Platelet Volume 10.7 fl (7.4-10.4); Platelet Count Result 204 k/mm3 (150-375); Red Blood Count 4.11 M/mm3 (4.2-5.4); Red Cell Distribution Width 14.7 % (11.5-14.5); White Blood Count 16.7 K/mm3 (4.5-10.0)
[2022-08-15 06:08] LABS: Alanine Aminotransferase 26 U/L (6-35); Albumin Level 3.3 g/dL (3.5-5.1); Alkaline Phosphatase 90 U/L (38-126); Anion Gap 7 mmol/L (8-16); Aspartate Amino Transferase 24 U/L (14-36); Bilirubin,Total 1.1 mg/dL (0.2-1.3); Blood Urea Nitrogen 10 mg/dL (7-17); Calcium 8.4 mg/dL (8.4-10.2); Carbon Dioxide 24 mmol/L (22-30); Chloride 106 mmol/L (98-107); Estimated CRCL calculation 83 ml/min; Estimated Glomerular Filt Rate > 60; Glucose 119 mg/dL (65-110); Magnesium 2.1 mg/dL (1.6-2.3); Potassium 3.5 mmol/L (3.4-5.0); Sodium 137 mmol/L (137-145)
[2022-08-15] MEDS: HYDROmorphone HCL INJ (*CRX) 1 MG/ML SYR 0.5 MG IV PUSH ×2 (07:58→21:46)
--- NOTE | 2022-08-15 10:22 | PM.PNGS ---
Progress Note: A&P Assessment and Plan (1) Diverticulitis of colon with perforation: Code(s): K57.20 - Diverticulitis of large intestine with perforation and abscess without bleeding Status: Acute Assessment and Plan: WBC down to 16.7 today, she is afebrile and is no longer tachycardic this morning. Abdominal pain and tenderness is about the same as yesterday. Also with complaints of nausea and bloating. Could be developing an ileus. Will keep on clear liquids today. Encouraged getting up and ambulating in the halls. Will add IV fluids. Continue IV analgesics and add scheduled IV Ibuprofen for the next 24 hours to see if this helps with pain control. Continue IV Zosyn, added IV Gentamicin Plan I have discussed the patient's case and plan of care with Dr. Tijerina. Subjective Subjective Date/Time Seen: 08/15/22 10:22 Patient reports: still having pain, flatus, bowel movement (one formed BM yesterday), nausea and afebrile Interval history: Patient reports her lower abdominal pain and bloating is about the same today. She also complains of indigestion and nausea, no vomiting. Reports not taking in much liquids this morning. She felt like her energy level was better yesterday and she got up and walked the halls a few times. She also had a BM yesterday. Review of Systems Review of Systems: All systems reviewed & are unremarkable except as noted in HPI and below Exam Const: General: alert; No acute distress Orientation/consciousness: patient oriented x3 GI: Inspection: distended and other GI Palp: Yes Soft to palpation, Yes Tenderness to palpation present (GI) (tender throughout entire abdomen, worse in LLQ and RLQ) and Yes Guarding due to palpation present (GI) (LLQ, RLQ) Auscultation: Hypoactive bowel sounds present Objective Data Vital Signs Vital Signs: Vital Signs - 24 hr 08/14/22 16:22 08/14/22 21:36 08/15/22 01:05 Temperature 96.9 F L 97.9 F Pulse Rate 101 H 104 H Respiratory Rate 17 18 Blood Pressure 116/52 L 129/65 Pulse Oximetry 95 98 Oxygen Delivery Room Air 08/14/22 21:47 08/15/22 05:36 Temperature 97.9 F Pulse Rate 92 Respiratory Rate 18 Blood Pressure 113/58 L Pulse Oximetry 98 96 Oxygen Delivery Room Air Intake/Output Intake/Output: Intake & Output 08/12/22 08/13/22 08/14/22 08/15/22 23:59 23:59 23:59 23:59 Intake Total 2400 2960 1620 250 Balance 2400 2960 1620 250 Meds/Results Medications: Active Medications Generic Name Dose Route Start Last Admin Trade Name Freq PRN Reason Stop Dose Admin Acetaminophen 500 mg 08/14/22 14:48 Acetaminophen 500 Mg Tablet PO Q6H PRN Mild Pain (1-3) or Fever Hydromorphone HCl 0.5 mg 08/14/22 14:48 08/15/22 07:58 Hydromorphone Hcl Inj (*Crx) 1 Mg/Ml Syr IV PUSH 0.5 mg Q2H PRN Administration Pain Rated 4-6 Hydromorphone HCl 1 mg 08/14/22 14:48 08/15/22 01:43 Hydromorphone Hcl Inj (*Crx) 1 Mg/Ml Syr IV PUSH 1 mg Q2H PRN Administration Pain Rated 7-10 Piperacillin/Tazobactam/Dextrose 3.375 gm in 50 mls @ 100 mls/hr 08/12/22 14:00 08/15/22 06:50 Zosyn 3.375 Gm/D5w 50ml Pm IVPB Infused Q6HR PAO Infusion Gentamicin Sulfate 350 mg/ 108.75 mls @ 100 mls/hr 08/15/22 09:00 Dextrose IVPB Q24H PAO Ondansetron HCl 4 mg 08/12/22 06:59 Ondansetron Inj 4 Mg/2 Ml Vial IV PUSH Q4H PRN Nausea Radiology Results: ITS Impressions Abdomen/Pelvis CT 08/14/22 12:15 Impression: Findings compatible with sigmoid diverticulitis, with 3 probable small abscesses or developing abscesses/phlegmons, as detailed above. Several small bubbles of free air are again present, consistent with perforation. Diffuse fatty infiltration of liver. Cholelithiasis and/or gallbladder sludge. Minimal pleural effusions with bibasilar atelectatic change. ADDENDUM: 08/14/22 [id number] The original reported DLP is incorrect. The correct dose-length pro
[2022-08-15] MEDS: IBUPROFEN IV 800 MG/200 ML 800 MG/200 ML BAG 400 MG IVPB ×2 (12:32→17:50)
[2022-08-15 14:00] VITALS: BP 119/51; PULSE 92; RESP 18; O2SAT 98
--- NOTE | 2022-08-15 16:12 | PM.IMPN ---
Progress Note: A&P Assessment and Plan (1) Diverticulitis of colon with perforation: Code(s): K57.20 - Diverticulitis of large intestine with perforation and abscess without bleeding Status: Acute Assessment and Plan: ED-HPI narrative: 72-year-old female presenting to the emergency department for evaluation of lower abdominal pain that started approximately 2 AM.? Patient reports that she had been feeling fine during the day and she had fallen asleep in her chair and she woke up at 2 AM and was transitioning to bed.? Patient reports that she was walking upstairs she had onset of lower abdominal cramping.? Patient additionally felt that if she had had a bowel movement that this would improve symptoms but patient states it was too uncomfortable to sit down.? Patient describes pain as bilateral lower abdominal pain.? Patient denies any radiation of the pain.? Patient denies any associated back pain with this.? Patient also denies any associated nausea vomiting or change in bowel habits.? Patient does have a prior surgical history of a approximately 35 years ago.? Patient does not suspect that she has had a prior cholecystectomy or appendectomy. 08/14/2022 interval history: patient is 72-year-old female with no significant GI history presented emergency department with complaint of low abdominal pain, patient stated she wants to have a BM but pain is so severe unable to sit on the toilet, emergency department to further evaluate patient had a CT scan of the abdomen it showed acute sigmoid diverticulitis with microperforation but no abscess.Today patient states pain is little better in passing gas, patient started on Zosyn, today patient white counts are trending seen by surgery service started the patient on clear liquid, encourage patient to ambulate, , will continue conservative management patient is seen surgery service and further recommendation to follow. (2) Reactive airway disease: Code(s): J45.909 - Unspecified asthma, uncomplicated Status: Acute Assessment and Plan: remains clinically stable will continue Singulair and start bronchodilator as needed. Subjective Date/time seen: 08/15/22 16:12 ED-HPI narrative: 72-year-old female presenting to the emergency department for evaluation of lower abdominal pain that started approximately 2 AM.? Patient reports that she had been feeling fine during the day and she had fallen asleep in her chair and she woke up at 2 AM and was transitioning to bed.? Patient reports that she was walking upstairs she had onset of lower abdominal cramping.? Patient additionally felt that if she had had a bowel movement that this would improve symptoms but patient states it was too uncomfortable to sit down.? Patient describes pain as bilateral lower abdominal pain.? Patient denies any radiation of the pain.? Patient denies any associated back pain with this.? Patient also denies any associated nausea vomiting or change in bowel habits.? Patient does have a prior surgical history of a approximately 35 years ago.? Patient does not suspect that she has had a prior cholecystectomy or appendectomy. 08/14/2022 interval history: patient is 72-year-old female with no significant GI history presented emergency department with complaint of low abdominal pain, patient stated she wants to have a BM but pain is so severe unable to sit on the toilet, emergency department to further evaluate patient had a CT scan of the abdomen it showed acute sigmoid diverticulitis with microperforation but no abscess.Today patient states pain is little better in passing gas, patient started on Zosyn, today patient white counts are trending seen by surgery service started the patient on clear liquid, encourage patient to ambulate, , will continue conservative management patient is seen surgery service and further recommendation to follow. Exam Narrative: Patient is comfortable, NAD HEENT: eyes are cl
[2022-08-15] MEDS: KCL 20MEQ/0.9% SOD CHL 1,000 ML 70 ML IV CONT (16:22)
[2022-08-15 19:54] VITALS: BP 116/60; PULSE 88; RESP 20; TEMP 35.9; O2SAT 98
[2022-08-15 20:34] LABS: Gentamicin Random 4.2 ug/mL (5.0-12.0)
[2022-08-15] MEDS: SIMETHICONE 80 MG TAB.CHEW PO (21:41)
[2022-08-15] MEDS: IBUPROFEN IV 800 MG/200 ML 800 MG/200 ML BAG 200 MG IVPB (23:55)
[2022-08-16 05:04] VITALS: BP 110/53; PULSE 96; RESP 20; TEMP 36.3; O2SAT 97
[2022-08-16 05:50] LABS: Hematocrit 33.5 % (37.0-47.0); Hemoglobin 11.2 g/dL (12.0-15.0); Mean Corpuscular HGB Conc 33.4 g/dl (32-36); Mean Corpuscular Hemoglobin 28.9 pg (26-34); Mean Corpuscular Volume 86.6 fl (80-100); Mean Platelet Volume 10.4 fl (7.4-10.4); Platelet Count Result 212 k/mm3 (150-375); Red Blood Count 3.87 M/mm3 (4.2-5.4); Red Cell Distribution Width 14.5 % (11.5-14.5); White Blood Count 10.8 K/mm3 (4.5-10.0)
[2022-08-16] MEDS: IBUPROFEN IV 800 MG/200 ML 800 MG/200 ML BAG 300 MG IVPB (05:55)
[2022-08-16 06:19] LABS: Alanine Aminotransferase 21 U/L (6-35); Albumin Level 2.8 g/dL (3.5-5.1); Alkaline Phosphatase 83 U/L (38-126); Anion Gap 5 mmol/L (8-16); Aspartate Amino Transferase 24 U/L (14-36); Bilirubin,Total 0.8 mg/dL (0.2-1.3); Blood Urea Nitrogen 10 mg/dL (7-17); Calcium 7.9 mg/dL (8.4-10.2); Carbon Dioxide 26 mmol/L (22-30); Chloride 104 mmol/L (98-107); Estimated CRCL calculation 73 ml/min; Estimated Glomerular Filt Rate > 60; Glucose 93 mg/dL (65-110); Magnesium 1.9 mg/dL (1.6-2.3); Sodium 135 mmol/L (137-145)
--- NOTE | 2022-08-16 10:22 | PM.PNGS ---
Progress Note: A&P Assessment and Plan (1) Diverticulitis of colon with perforation: Code(s): K57.20 - Diverticulitis of large intestine with perforation and abscess without bleeding Status: Acute Assessment and Plan: doing much better. Continue IV Zosyn and gentamicin. Advance to low fiber diet. Possibly home tomorrow if okay with hospitalist. Will need to continue oral antibiotics after discharge. Subjective Subjective Date/Time Seen: 08/16/22 10:22 Patient reports: feels better, pain is less, tolerating liquids well, bowel movement and afebrile Review of Systems Review of Systems: All systems reviewed & are unremarkable except as noted in HPI and below ( HPI and those items noted below) Constitutional: Constitutional: Denies chills and Denies fever(s) Cardiovascular: Cardiovascular: Denies chest pain, Denies diaphoresis, Denies dyspnea and Denies paroxysmal nocturnal dyspnea Respiratory: Respiratory: Denies chest congestion, Denies cough and Denies dyspnea Integumentary/Breasts: Skin/Breast: Denies lesions and Denies rash Exam Const: General: comfortable and no acute distress; No confusion Orientation/consciousness: patient oriented x3 and No confusion Resp: Effort & Inspection: normal respiratory effort Auscultation: clear to auscultation bilaterally Cardio: Rate: regular rate Rhythm: regular rhythm GI: Inspection: non-distended GI Palp: Yes Soft to palpation, No Tenderness to palpation present (GI), No Guarding due to palpation present (GI) and No Rebound tenderness present Auscultation: normal bowel sounds Neuro: General: patient oriented x3, no focal motor deficits and No confusion Extrem: General: no calf tenderness and no edema Psych: Affect: normal affect Insight: Good insight present (Psych) Judgement: Good judgement present (Psych) Objective Data Vital Signs Vital Signs: Vital Signs - 24 hr 08/15/22 14:00 08/15/22 19:54 08/15/22 20:00 Temperature 35.9 C L Pulse Rate 92 88 Respiratory Rate 18 20 Blood Pressure 119/51 L 116/60 Pulse Oximetry 98 98 Oxygen Delivery Room Air 08/16/22 05:04 Temperature 36.3 C L Pulse Rate 96 Respiratory Rate 20 Blood Pressure 110/53 L Pulse Oximetry 97 Oxygen Delivery Intake/Output Intake/Output: Intake & Output 08/13/22 08/14/22 08/15/2230/22 23:59 23:59 23:59 23:59 Intake Total 2960 1620 2288.75 1190 Balance 2960 1620 2288.75 1190 Meds/Results Medications: Active Medications Generic Name Dose Route Start Last Admin Trade Name Freq PRN Reason Stop Dose Admin Acetaminophen 500 mg 08/14/22 14:48 Acetaminophen 500 Mg Tablet PO Q6H PRN Mild Pain (1-3) or Fever Hydromorphone HCl 0.5 mg 08/14/22 14:48 08/15/22 21:46 Hydromorphone Hcl Inj (*Crx) 1 Mg/Ml Syr IV PUSH 0.5 mg Q2H PRN Administration Pain Rated 4-6 Hydromorphone HCl 1 mg 08/14/22 14:48 08/15/22 10:35 Hydromorphone Hcl Inj (*Crx) 1 Mg/Ml Syr IV PUSH 1 mg Q2H PRN Administration Pain Rated 7-10 Piperacillin/Tazobactam/Dextrose 3.375 gm in 50 mls @ 100 mls/hr 08/12/22 14:00 08/16/22 07:13 Zosyn 3.375 Gm/D5w 50ml Pm IVPB Infused Q6HR PAO Infusion Gentamicin Sulfate 350 mg/ 108.75 mls @ 100 mls/hr 08/15/22 09:00 08/16/22 09:03 Dextrose IVPB 100 mls/hr Q24H PAO Administration Ondansetron HCl 4 mg 08/12/22 06:59 Ondansetron Inj 4 Mg/2 Ml Vial IV PUSH Q4H PRN Nausea Potassium Chloride 40 meq 08/16/22 17:00 Potassium Chloride 20 Meq Tablet.Er PO BIDWM PAO Simethicone 80 mg 08/15/22 21:01 08/15/22 21:41 Simethicone 80 Mg Tab.Chew PO 80 mg QID PRN Administration Gas Discomfort Radiology Results: ITS Impressions Abdomen/Pelvis CT 08/14/22 12:15 Impression: Findings compatible with sigmoid diverticulitis, with 3 probable small abscesses or developing abscesses/phlegmons, as detailed above. Several small bubbles of free air
[2022-08-16 13:52] VITALS: BP 117/55; PULSE 89; RESP 18; TEMP 36.7; O2SAT 97
[2022-08-16] MEDS: ACETAMINOPHEN 500 MG TABLET PO (17:12)
[2022-08-16] MEDS: POTASSIUM CHLORIDE 20 MEQ TABLET.ER 40 MEQ PO (17:14)
[2022-08-16] MEDS: SIMETHICONE 80 MG TAB.CHEW PO (17:26)
--- NOTE | 2022-08-16 17:45 | PM.IMPN ---
Progress Note: A&P Assessment and Plan (1) Diverticulitis of colon with perforation: Code(s): K57.20 - Diverticulitis of large intestine with perforation and abscess without bleeding Status: Acute Assessment and Plan: ED-HPI narrative: 72-year-old female presenting to the emergency department for evaluation of lower abdominal pain that started approximately 2 AM.? Patient reports that she had been feeling fine during the day and she had fallen asleep in her chair and she woke up at 2 AM and was transitioning to bed.? Patient reports that she was walking upstairs she had onset of lower abdominal cramping.? Patient additionally felt that if she had had a bowel movement that this would improve symptoms but patient states it was too uncomfortable to sit down.? Patient describes pain as bilateral lower abdominal pain.? Patient denies any radiation of the pain.? Patient denies any associated back pain with this.? Patient also denies any associated nausea vomiting or change in bowel habits.? Patient does have a prior surgical history of a approximately 35 years ago.? Patient does not suspect that she has had a prior cholecystectomy or appendectomy. 08/16/2022 interval history: patient is 72-year-old female with no significant GI history presented emergency department with complaint of low abdominal pain, patient stated she wants to have a BM but pain is so severe unable to sit on the toilet, emergency department to further evaluate patient had a CT scan of the abdomen it showed acute sigmoid diverticulitis with microperforation but no abscess.Today patient states pain is little better in passing gas as well as had BMs, patient was started on Zosyn added gentamicin, today patient white counts are trending down, seen by surgery service advanced her diet from clear liquid to low fiber diet, encourage patient to ambulate, , will continue conservative management will reassess patient tomorrow and possible discharge home on oral medication. (2) Reactive airway disease: Code(s): J45.909 - Unspecified asthma, uncomplicated Status: Acute Assessment and Plan: remains clinically stable will continue Singulair and start bronchodilator as needed. Subjective Date/time seen: 08/16/22 17:45 08/16/2022 interval history: patient is 72-year-old female with no significant GI history presented emergency department with complaint of low abdominal pain, patient stated she wants to have a BM but pain is so severe unable to sit on the toilet, emergency department to further evaluate patient had a CT scan of the abdomen it showed acute sigmoid diverticulitis with microperforation but no abscess.Today patient states pain is little better in passing gas as well as had BMs, patient was started on Zosyn added gentamicin, today patient white counts are trending down, seen by surgery service advanced her diet from clear liquid to low fiber diet, encourage patient to ambulate, , will continue conservative management will reassess patient tomorrow and possible discharge home on oral medication. Exam Narrative: Patient is comfortable, NAD HEENT: eyes are clear and none icteric LUNGS: normal respiratory effort ABD: distended Lower extremities: no edema SKIN: nonjaundiced Neuro: grossly intact. Objective Data Vital Signs Vital Signs: Vital Signs - 24 hr 08/15/22 19:54 08/15/22 20:00 08/16/22 05:04 Temperature 96.7 F L 97.4 F L Pulse Rate 88 96 Respiratory Rate 20 20 Blood Pressure 116/60 110/53 L Pulse Oximetry 98 97 Oxygen Delivery Room Air 08/16/22 08:00 08/16/22 13:52 Temperature 98.1 F Pulse Rate 89 Respiratory Rate 18 Blood Pressure 117/55 L Pulse Oximetry 97 Oxygen Delivery Room Air Intake/Output Intake/Output: Intake & Output 08/13/22 08/14/22 08/15/22 08/16/22 23:59 23:59 23:59 23:59 Intake Total 2960 1620 2288.75 1608.75 Balance 2960 1620 2288.75 1608.75 Meds/Results Med
[2022-08-16 21:19] VITALS: BP 114/52; PULSE 102; RESP 20; TEMP 36.2; O2SAT 98
[2022-08-16] MEDS: HYDROmorphone HCL INJ (*CRX) 1 MG/ML SYR 0.5 MG IV PUSH (22:21)
[2022-08-17] MEDS: ACETAMINOPHEN 500 MG TABLET PO (02:12)
[2022-08-17] MEDS: AMOXICILLIN/CLAVULANATE K 875-125 MG TAB 1 TABLET PO (03:18)
[2022-08-17 05:06] VITALS: BP 123/50; PULSE 93; RESP 18; TEMP 36; O2SAT 97
[2022-08-17 05:57] LABS: Hematocrit 32.2 % (37.0-47.0); Hemoglobin 10.8 g/dL (12.0-15.0); Mean Corpuscular HGB Conc 33.5 g/dl (32-36); Mean Corpuscular Hemoglobin 28.9 pg (26-34); Mean Corpuscular Volume 86.1 fl (80-100); Mean Platelet Volume 10.3 fl (7.4-10.4); Platelet Count Result 226 k/mm3 (150-375); Red Blood Count 3.74 M/mm3 (4.2-5.4); Red Cell Distribution Width 14.5 % (11.5-14.5); White Blood Count 12.1 K/mm3 (4.5-10.0)
[2022-08-17 06:11] LABS: Alanine Aminotransferase 26 U/L (6-35); Alkaline Phosphatase 85 U/L (38-126); Anion Gap 4 mmol/L (8-16); Aspartate Amino Transferase 30 U/L (14-36); Bilirubin,Total 0.6 mg/dL (0.2-1.3); Blood Urea Nitrogen 8 mg/dL (7-17); Calcium 8.2 mg/dL (8.4-10.2); Carbon Dioxide 26 mmol/L (22-30); Chloride 103 mmol/L (98-107); Estimated CRCL calculation 83 ml/min; Estimated Glomerular Filt Rate > 60; Glucose 109 mg/dL (65-110); Magnesium 1.7 mg/dL (1.6-2.3); Potassium 3.1 mmol/L (3.4-5.0); Sodium 133 mmol/L (137-145)
[2022-08-17] MEDS: ACETAMINOPHEN 500 MG TABLET 1000 MG PO (09:16)
[2022-08-17] MEDS: POTASSIUM CHLORIDE 20 MEQ TABLET 40 MEQ PO (09:16)
[2022-08-17] MEDS: MAGNESIUM OXIDE 400 MG TABLET PO (09:17)
--- NOTE | 2022-08-17 09:49 | PM.DS ---
DS: Admitting Diagnosis Discharge Date 08/17/2022 Admitting Diagnosis lower abdominal pain DS: Discharge Diagnosis Discharge Diagnosis (1) Diverticulitis of colon with perforation: Code(s): K57.20 - Diverticulitis of large intestine with perforation and abscess without bleeding Status: Acute Assessment and Plan: ED-HPI narrative: 72-year-old female presenting to the emergency department for evaluation of lower abdominal pain that started approximately 2 AM.? Patient reports that she had been feeling fine during the day and she had fallen asleep in her chair and she woke up at 2 AM and was transitioning to bed.? Patient reports that she was walking upstairs she had onset of lower abdominal cramping.? Patient additionally felt that if she had had a bowel movement that this would improve symptoms but patient states it was too uncomfortable to sit down.? Patient describes pain as bilateral lower abdominal pain.? Patient denies any radiation of the pain.? Patient denies any associated back pain with this.? Patient also denies any associated nausea vomiting or change in bowel habits.? Patient does have a prior surgical history of a approximately 35 years ago.? Patient does not suspect that she has had a prior cholecystectomy or appendectomy. 08/16/2022 interval history: patient is 72-year-old female with no significant GI history presented emergency department with complaint of low abdominal pain, patient stated she wants to have a BM but pain is so severe unable to sit on the toilet, emergency department to further evaluate patient had a CT scan of the abdomen it showed acute sigmoid diverticulitis with microperforation but no abscess.Today patient states pain is little better in passing gas as well as had BMs, patient was started on Zosyn added gentamicin, today patient white counts are trending down, seen by surgery service advanced her diet from clear liquid to low fiber diet, encourage patient to ambulate, , will continue conservative management will reassess patient tomorrow and possible discharge home on oral medication. (2) Reactive airway disease: Code(s): J45.909 - Unspecified asthma, uncomplicated Status: Acute Assessment and Plan: remains clinically stable will continue Singulair and start bronchodilator as needed. DS: Summary Hospital Course Reason for hospitalization: ED-HPI narrative: 72-year-old female presenting to the emergency department for evaluation of lower abdominal pain that started approximately 2 AM.? Patient reports that she had been feeling fine during the day and she had fallen asleep in her chair and she woke up at 2 AM and was transitioning to bed.? Patient reports that she was walking upstairs she had onset of lower abdominal cramping.? Patient additionally felt that if she had had a bowel movement that this would improve symptoms but patient states it was too uncomfortable to sit down.? Patient describes pain as bilateral lower abdominal pain.? Patient denies any radiation of the pain.? Patient denies any associated back pain with this.? Patient also denies any associated nausea vomiting or change in bowel habits.? Patient does have a prior surgical history of a approximately 35 years ago.? Patient does not suspect that she has had a prior cholecystectomy or appendectomy. ?patient is 72-year-old female with no significant GI history presented emergency department with complaint of low abdominal pain,? patient states? she wants to have a BM but pain is so severe unable to sit on the toilet,? emergency department to further evaluate patient had a CT scan of the abdomen? it showed?acute sigmoid diverticulitis with microperforation but no abscess.? patient started on Zosyn will continue with bowel rest except sips of water,? will continue conservative management patient be seen surgery service and further recommendation to follow. Hospital Course: patient is 72-year-old fe
--- NOTE | 2022-08-17 11:01 | P.DS_ITS ---
DS: Admitting Diagnosis Discharge Date 08/17/2022 Admitting Diagnosis * diverticulitis with perforation DS: Summary Time Spent with Patient Time attestation: Total time spent providing and/or coordinating discharge services: DS: Data Data Completed and Pending Labs on day of discharge: Labs from last 24 hours 08/17/22 08/17/22 04:59 04:59 WBC 12.1 H RBC 3.74 L Hgb 10.8 L Hct 32.2 L MCV 86.1 MCH 28.9 MCHC 33.5 RDW 14.5 Plt Count 226 MPV 10.3 Sodium 133 L Potassium 3.1 L Chloride 103 Carbon Dioxide 26 Anion Gap 4 L BUN 8 Creatinine 0.60 L Estim Creat Clear Calc 83 Estimated GFR > 60 Glucose 109 Calcium 8.2 L Magnesium 1.7 Total Bilirubin 0.6 AST 30 ALT 26 Alkaline Phosphatase 85 Total Protein 6.0 L Albumin 3.0 L Preliminary micro results at discharge 08/12/22 07:14 Blood Culture - Preliminary Blood 08/12/22 07:14 Blood Culture - Preliminary Blood Discharge Plan Discharge Attending physician on discharge: Izabela Corona Consulting providers: Nolan Tijerina Discharging Clinician: Izabela Corona Patient Disposition: Home, Self-Care Activity: as tolerated Diet: low fiber Discharge Instructions: patient is encouraged to gently ambulate, drinks fluids, and low fiber diet, patient to follow up with her Dr. Rodgers in 1 week, patient to follow up with her primary care provider as soon as possible, patient is instructed if any symptoms redevelop to go to nearest ER. Patient Instructions: Antibiotic Form, Diverticulitis (DC) Stand Alone Forms: General Discharge Information Follow-up/Referrals: Nolan Tijerina, [Physician] - Discharge Medications: New magnesium oxide 400 mg (241.3 mg magnesium) Tablet 400 mg PO QAM Qty: 30 0RF simethicone 80 mg Tablet,Chewable 80 mg PO QID PRN (Reason: Gas Discomfort) Qty: 30 0RF amoxicillin-pot clavulanate [Augmentin] 500-125 mg tablet 1 tablet PO Q8H Qty: 15 0RF hydrocodone-acetaminophen 5-325 mg tablet 1 tablet PO Q6H PRN (Reason: pain) Qty: 12 0RF ondansetron 4 mg tablet,disintegrating 4 mg PO Q8H PRN (Reason: nausea and vomiting) Qty: 20 0RF Continued montelukast 10 mg tablet 10 mg PO DAILY Date of admission: 08/12/22 07:12 Primary Care Provider: Jared,Marah Admitting Provider: Rosa Cowart Attending physician on admission: Rosa Cowart Condition: Stable
--- NOTE | 2022-08-17 11:07 | PM.PNGS ---
Progress Note: A&P Assessment and Plan (1) Diverticulitis of colon with perforation: Code(s): K57.20 - Diverticulitis of large intestine with perforation and abscess without bleeding Status: Acute Assessment and Plan: okay to discharge on ciprofloxacin and metronidazole for another week. I explained to her that she could take Imodium for diarrhea as needed. She will stay on a low-fiber diet. She will follow up with Dr. Tijerina in 2 weeks. Subjective Subjective Date/Time Seen: 08/17/22 11:07 Patient reports: pain is less and other ( had a rough night because she got stuck for an IV multiple times. Would like to go home today.) Interval history: No abdominal pain but is having 3-5 loose stools per day. Review of Systems Review of Systems: All systems reviewed & are unremarkable except as noted in HPI and below ( HPI) Exam Const: General: comfortable and no acute distress; No confusion Orientation/consciousness: patient oriented x3 and No confusion GI: Inspection: normal to inspection and non-distended GI Palp: Yes Soft to palpation, No Tenderness to palpation present (GI), No Guarding due to palpation present (GI) and No Rebound tenderness present Auscultation: normal bowel sounds Neuro: General: patient oriented x3, no focal motor deficits and No confusion Extrem: General: no calf tenderness and no edema Psych: Affect: normal affect Insight: Good insight present (Psych) Judgement: Good judgement present (Psych) Objective Data Vital Signs Vital Signs: Vital Signs - 24 hr 08/16/22 13:52 08/16/22 21:19 08/16/22 22:20 Temperature 36.7 C 36.2 C L Pulse Rate 89 102 H Respiratory Rate 18 20 Blood Pressure 117/55 L 114/52 L Pulse Oximetry 97 98 Oxygen Delivery Room Air 08/17/22 05:06 Temperature 36.0 C L Pulse Rate 93 Respiratory Rate 18 Blood Pressure 123/50 L Pulse Oximetry 97 Oxygen Delivery Intake/Output Intake/Output: Intake & Output 08/14/22 08/15/22 08/16/22 08/17/22 23:59 23:59 23:59 23:59 Intake Total 1620 2288.75 2418.75 420 Balance 1620 2288.75 2418.75 420 Meds/Results Medications: Active Medications Generic Name Dose Route Start Last Admin Trade Name Freq PRN Reason Stop Dose Admin Acetaminophen 1,000 mg 08/17/22 08:46 08/17/22 09:16 Acetaminophen 500 Mg Tablet PO 1,000 mg Q6H PRN Administration Mild Pain (1-3) or Fever Amoxicillin/Clavulanate Potassium 1 tablet 08/17/22 03:05 08/17/22 03:18 Amoxicillin/Clavulanate K 875-125 Mg Tab PO 1 tablet Q12HR PAO Administration Hydromorphone HCl 0.5 mg 08/14/22 14:48 08/16/22 22:21 Hydromorphone Hcl Inj (*Crx) 1 Mg/Ml Syr IV PUSH 0.5 mg Q2H PRN Administration Pain Rated 4-6 Hydromorphone HCl 1 mg 08/14/22 14:48 08/15/22 10:35 Hydromorphone Hcl Inj (*Crx) 1 Mg/Ml Syr IV PUSH 1 mg Q2H PRN Administration Pain Rated 7-10 Magnesium Oxide 400 mg 08/17/22 09:00 08/17/22 09:17 Magnesium Oxide 400 Mg Tablet PO 400 mg QAM PAO Administration Ondansetron HCl 4 mg 08/12/22 06:59 Ondansetron Inj 4 Mg/2 Ml Vial IV PUSH Q4H PRN Nausea Potassium Chloride 40 meq 08/16/22 17:00 08/16/22 17:14 Potassium Chloride 20 Meq Tablet.Er PO 40 meq BIDWM PAO Administration Simethicone 80 mg 08/15/22 21:01 08/16/22 17:26 Simethicone 80 Mg Tab.Chew PO 80 mg QID PRN Administration Gas Discomfort Radiology Results: ITS Impressions Abdomen/Pelvis CT 08/14/22 12:15 Impression: Findings compatible with sigmoid diverticulitis, with 3 probable small abscesses or developing abscesses/phlegmons, as detailed above. Several small bubbles of free air are again present, consistent with perforation. Diffuse fatty infiltration of liver. Cholelithiasis and/or gallbladder sludge. Minimal pleural effusions with bibasilar atelectatic change. ADDENDUM: 08/14/22 [id number] The original reported DLP is incorrect. The c
== END 2022-08-17 10:40 | disposition home or self-care (01) | DRG 392 ==
LOC: ANHED 06:59 → ANH2MED 08:38
PROVIDERS: Surgery; Admitting Provider Student in an Organized Health Care Education/Training Program; Emergency Provider Emergency Medicine; PCP Physician Assistant; Visit Provider Family Medicine
DX: K57.20 Diverticulitis of large intestine with perforation and abscess without bleeding (principal); J45.909 Unspecified asthma, uncomplicated; Z20.822 Contact with and (suspected) exposure to COVID-19
CPT/HCPCS: 36415; 74177; 80053; 80170; 81001; 83735; 85025; 85027; 85610; 85730; 87040; 87636; 96361; 96374; 99285; A9270; J1170; J1580; J1741; J2405; J2543; J3480; J7030; J7050; Q9967

== ENCOUNTER → 2022-09-09 10:23 | Outpatient (CLI) | payer MEDICARE, SELFPAY ==
--- NOTE | ~2022-09-09 | CT_ITS ---
EXAMINATION: CT abdomen pelvis w con DATE: 09/09/2022 10:54 INDICATION: Diverticulitis with perforation TECHNIQUE: Computed tomography (CT) of the abdomen and pelvis was performed with 100 mL Omnipaque-350 intravenous contrast. Automated exposure control and iterative reconstruction technique were employe d. The dose-length product was 854.70 mGy-cm. COMPARISON: 08/14/2022 FINDINGS: Improvement in now mild discoid atelectasis in the lingula and right middle lobe. Heart size is joel l. No pericardial or pleural effusion. Mild pectus excavatum. Diffuse hepatic steatosis. Layering slu dge versus gallstones in the dependent aspect of the otherwise normal appearing gallbladder. No gallb ladder dilation, wall thickening or pericholecystic inflammatory stranding to suggest acute cholecyst itis. No intra or extrahepatic biliary ductal dilation. Splenomegaly measuring 15.7 cm in maximal gaby gth. Pancreas, bilateral adrenal glands and kidneys are normal. Small bowel and appendix are normal. Mild diverticulosis. Persistent inflammatory stranding in the deep pelvis centered between the sigmoi d colon and the rectum consistent with diverticulitis. Interval decrease in size of a few persistent peripherally enhancing very small gas and fluid collections in the deep pelvis which remain too small for consideration of percutaneous drainage, none measuring greater than 1 cm in maximal diameter. Bl adder, anteverted uterus and bilateral adnexa are unremarkable. No pathologically enlarged abdominal or pelvic lymphadenopathy. IMPRESSION: 1. Diverticulitis with interval decrease in size of a few very small loculated gas and fluid containi ng abscesses in the deep pelvis. 2. Nonspecific splenomegaly. Delayed 3. Layering sludge versus gallstones in the otherwise normal gallbladder. Reviewed, dictated and finalized at location B. STAR IMPRESSION: 1. Diverticulitis with interval decrease in size of a few very small loculated gas and fluid containing abscesses in the deep pelvis. 2. Nonspecific splenomegaly. Delayed 3. Layering sludge versus gallstones in the otherwise normal gallbladder.
[2022-09-09 10:46] LABS: Estimated Glomerular Filt Rate > 60
== END ==
PROVIDERS: PCP Physician Assistant; Visit Provider Surgery
DX: K57.20 Diverticulitis of large intestine with perforation and abscess without bleeding (principal)
CPT/HCPCS: 74177; Q9967

== ENCOUNTER 2022-10-10 01:09 | Day surgery (SDC) | payer MEDICARE, SELFPAY ==
[2022-09-27 14:27] VITALS: BMI 29.9
[2022-10-10 06:35] VITALS: BP 114/52; PULSE 85; RESP 18; TEMP 36; O2SAT 99; BMI 30.6
[2022-10-10] MEDS: LACTATED RINGERS 1,000 ML 150 ML IV CONT (06:48)
--- NOTE | 2022-10-10 06:49 | WPDANESEPPF ---
Anes - Initial Pre Proc Eval Procedure: Operation Date: 10/10/22 07:30 Proposed Procedures p Colonoscopy - Nolan Tijerina DO Date/Time: 10/10/22 06:49 Surgeon: Nolan Tijerina DO Pre Op Diagnosis: diverticulitis perforation Patient Data Age: 72 Gender: F Height: 1.68 m Weight: 86.1 kg Last Vital Signs Temp 36.0 C L 10/10/22 06:35 Pulse 85 10/10/22 06:35 Resp 18 10/10/22 06:35 BP 114/52 L 10/10/22 06:35 Pulse Ox 99 10/10/22 06:35 O2 Del Method Room Air 10/10/22 06:35 Allergies Allergy/AdvReac Type Severity Reaction Status Date / Time Sulfa (Sulfonamide Allergy Mild Rash Verified 09/27/22 14:13 Antibiotics) Home Medications Medication Instructions Recorded Confirmed Type montelukast 10 mg tablet 10 mg PO DAILY 02/25/21 09/27/22 History simethicone 80 mg chewable tablet 80 mg PO QID PRN Gas Discomfort 08/17/22 09/27/22 Rx #30 tabs albuterol sulfate 90 mcg/actuation 2 puff inhalation Q4H PRN Wheezing 09/27/22 09/27/22 History aerosol inhaler fluticasone propionate 50 1 spray intranasal DAILY PRN 09/27/22 09/27/22 History mcg/actuation nasal Allergic Symptoms spray,suspension ipratropium 0.5 mg-albuterol 3 mg 3 ml inhalation QID 09/27/22 09/27/22 History (2.5 mg base)/3 mL nebulization soln Patient hx anesthesia problems: none Family hx anesthesia problems: none Results Review: All pre-operative results and documents have been reviewed as part of the pre-operative evaluation. [facility] Past Medical History Medical History (Updated 10/09/22 @ 16:16 by Dariusz Major DO) GERD (gastroesophageal reflux disease) History of breast cancer Reactive airway disease Surgical History Surgical History H/O lumpectomy History of delivery Family History Family History Mother No pertinent past medical history Diverticulitis large intestine Social History Social History Smoking status: Never smoker Alcohol intake: never Substance use: never Substance use type: does not use Lack of Transportation: No Lack of Food: Never True Current Housing: I Have Housing Concerned About Future Housing: No Difficulty Paying Gas/Electric Bills: No Difficulty Paying for Meds: No Currently Unemployed: No Education: Bachelor's Degree Difficulty w/ Childcare or Family Care: No Living arrangements: with family Gender identity (if verbalized by the patient): Female Spiritual care concerns: No Anes - Eval Final PreProcedure Day of Procedure 10/10/22 06:49 Patient weight: obese Heart: regular rate and rhythm Lungs: clear to auscultation Airway: Mallampati scale class II Neurological: alert and oriented Last oral intake: >/= 8 hours ASA classification: II Emergent: no Anesthetic plan: proceed Anesthesia type and monitoring: general GIVS and standard monitoring Results Review: All pre-operative results and documents have been reviewed as part of the pre-operative evaluation. Informed Consent: The patient's anesthetic plan and its attendant risks and benefits were discussed with the patient/family/POA. Questions were solicited and answers provided to the satisfaction of the patient/family/POA.
--- NOTE | 2022-10-10 07:33 | PM.IMHP ---
H&P: HPI History of Present Illness Date/Time: 10/10/22 07:33 Chief Complaint: Screening colonoscopy, history of diverticulitis Narrative: this is a 72-year-old woman who presents for colonoscopy. She recently had an episode of diverticulitis and she was hospitalized for several days. She has recovered from the diverticulitis. She is due for a screening colonoscopy. Review of Systems Review of Systems: All systems reviewed & are unremarkable except as noted in HPI and below Constitutional: Constitutional: Denies chills, Denies fever(s), Denies headache(s) and Denies weight loss Eyes: Eyes: Denies change in vision ENT: Denies dizziness, Denies headache(s), Denies neck mass and Denies throat swelling Cardiovascular: Cardiovascular: Denies chest pain, Denies lightheadedness and Denies dyspnea Respiratory: Respiratory: Denies cough, Denies dyspnea and Denies wheezing Gastrointestinal: Gastrointestinal: Denies abdominal pain, Denies change in bowel habits, Denies nausea and Denies vomiting Genitourinary: Genitourinary: Denies hematuria and Denies dysuria Musculoskeletal: Musculoskeletal: Reports as per HPI Integumentary/Breasts: Skin/Breast: Reports as per HPI Neurologic: Denies dizziness and Denies headache(s) Allergic/Immunologic: Allergic/Immunologic: Denies throat swelling and Denies wheezing [facility] Past Medical History Medical History (Updated 10/09/22 @ 16:16 by Dariusz Major DO) GERD (gastroesophageal reflux disease) History of breast cancer Reactive airway disease Surgical History Surgical History H/O lumpectomy History of delivery Family History Family History Mother No pertinent past medical history Diverticulitis large intestine Social History Social History Smoking status: Never smoker Alcohol intake: never Substance use: never Substance use type: does not use Lack of Transportation: No Lack of Food: Never True Current Housing: I Have Housing Concerned About Future Housing: No Difficulty Paying Gas/Electric Bills: No Difficulty Paying for Meds: No Currently Unemployed: No Education: Bachelor's Degree Difficulty w/ Childcare or Family Care: No Living arrangements: with family Gender identity (if verbalized by the patient): Female Spiritual care concerns: No Meds Home Medications and Allergies Home Medications Medication Instructions Recorded Confirmed Type montelukast 10 mg tablet 10 mg PO DAILY 02/25/21 09/27/22 History simethicone 80 mg chewable tablet 80 mg PO QID PRN Gas Discomfort 08/17/22 09/27/22 Rx #30 tabs albuterol sulfate 90 mcg/actuation 2 puff inhalation Q4H PRN Wheezing 09/27/22 09/27/22 History aerosol inhaler fluticasone propionate 50 1 spray intranasal DAILY PRN 09/27/22 09/27/22 History mcg/actuation nasal Allergic Symptoms spray,suspension ipratropium 0.5 mg-albuterol 3 mg 3 ml inhalation QID 09/27/22 09/27/22 History (2.5 mg base)/3 mL nebulization soln Allergies Allergy/AdvReac Type Severity Reaction Status Date / Time Sulfa (Sulfonamide Allergy Mild Rash Verified 09/27/22 14:13 Antibiotics) Vital Signs Vital Signs - 24 hr 10/10/22 06:35 Temperature 36.0 C L Pulse Rate 85 Respiratory Rate 18 Blood Pressure 114/52 L Pulse Oximetry 99 Oxygen Delivery Room Air Exam Const: General: no acute distress and alert Orientation/consciousness: patient oriented x3 HENMT: Head: normocephalic and atraumatic Ears: hearing grossly normal bilaterally Face/Nose/Sinus: Normal nares present Mouth: Yes Normal oral and palatal mucosa present Eyes: Periorbital: periorbital findings normal Sclera: sclerae normal EOM: EOMs intact bilaterally Neck: Neck: normal visual inspection, no lymphadenopathy and
[2022-10-10 08:10] VITALS: BP 103/62; PULSE 87; RESP 14; O2SAT 99
[2022-10-10 08:20] VITALS: BP 112/63; PULSE 88; RESP 16; O2SAT 99
[2022-10-10 08:30] VITALS: BP 101/67; PULSE 86; RESP 16; O2SAT 99
== END 2022-10-10 08:46 | disposition home or self-care (01) ==
PROVIDERS: PCP Physician Assistant; Visit Provider Surgery
PROC: 0DJD8ZZ Inspection of Lower Intestinal Tract, Via Natural or Artificial Opening Endoscopic (ICD-10-PCS; CPT 45378; principal; 2022-10-10 07:30)
DX: Z12.11 Encounter for screening for malignant neoplasm of colon (principal); K57.30 Diverticulosis of large intestine without perforation or abscess without bleeding; D12.8 Benign neoplasm of rectum; K64.8 Other hemorrhoids; K63.89 Other specified diseases of intestine; Z87.19 Personal history of other diseases of the digestive system; K21.9 Gastro-esophageal reflux disease without esophagitis; J45.909 Unspecified asthma, uncomplicated; Z85.3 Personal history of malignant neoplasm of breast; Z79.51 Long term (current) use of inhaled steroids; E66.9 Obesity, unspecified; Z68.30 Body mass index [BMI] 30.0-30.9, adult
CPT/HCPCS: 45385; 88305; J2704; J7120

== ENCOUNTER 2023-03-11 08:43 | Outpatient (CLI) | payer MEDICARE, SELFPAY ==
--- NOTE | ~2023-03-11 | XR_ITS ---
EXAMINATION: XR enema water soluble DATE: 03/11/2023 10:01 INDICATION: Diverticulitis of the large intestine with perforation. TECHNIQUE: A biological lab technician radiograph was obtained. A catheter was inserted into the patient's rectum. Water- soluble contrast was infused by gravity. Fluoroscopic spot images and conventional radiographs were o btained. Fluoroscopy exposure time was 0.6 minutes. Total of 30 fluoroscopic images and 14 overhead radiographs were obtained. COMPARISON: CT dated 09/09/2022 FINDINGS: Several diverticula are identified along the sigmoid colon. No evident extraluminal contrast extravas ation or fistulous communication to suggest residual bowel perforation. There is a normal haustral fo ld pattern throughout the more proximal colon. No colonic strictures, concerning mucosal irregulariti es or intraluminal masses identified. There is reflux of a small amount of contrast into the distal i leum. IMPRESSION: 1. Mild sigmoid diverticulosis. Otherwise unremarkable single contrast enema. Reviewed, dictated and finalized at location A.
== END 2023-03-11 08:44 | disposition home or self-care (01) ==
PROVIDERS: PCP Physician Assistant; Visit Provider Surgery
DX: K57.30 Diverticulosis of large intestine without perforation or abscess without bleeding (principal)
CPT/HCPCS: 74270

== ENCOUNTER 2024-04-12 10:30 | Outpatient (CLI) | payer MEDICARE, SELFPAY ==
--- NOTE | ~2024-04-12 | US_ITS ---
Limited Abdominal Sonogram: Real-time sonographic imaging of the right upper quadrant was performed. Clinical History: Back pain Findings: The liver appears normal with no evidence of mass lesion or bile duct dilatation. Main por flor vein demonstrates normal direction of flow. The gallbladder is well distended, and demonstrates m ultiple small gallstones. No gallbladder wall thickening. The common bile duct measures 4 mm. The vi sualized pancreas, aorta, and IVC are unremarkable. Impression: Cholelithiasis. Reviewed, dictated and finalized at location M. Impression: Cholelithiasis.
== END 2024-04-12 10:31 ==
LOC: MICIMG 10:32
PROVIDERS: PCP Physician Assistant; Visit Provider Surgery
DX: M54.9 Dorsalgia, unspecified (principal); K80.20 Calculus of gallbladder without cholecystitis without obstruction
CPT/HCPCS: 76705

== ENCOUNTER 2024-11-01 11:33 | Emergency (ER) | payer MEDICARE, SELFPAY ==
--- NOTE | 2024-11-01 11:39 | ED_ITS ---
HPI - Female Genitourinary General Chief complaint: Urogenital-Female Stated complaint: urinary issue Time Seen by Provider: 11/01/24 11:34 Source: patient Mode of arrival: ambulatory Limitations: no limitations History of Present Illness HPI Narrative: Patient is a 74-year-old female who presents with 3 days of dysuria, urgency frequency. Last UTI was in August and was given Macrobid, was then called and told to stop medication due to no growth. Patient has also taken 2 rounds of Monistat with no relief. Patient was on Augmentin 1 month ago for strep throat. Denies any fever, chills, low back pain, nausea, vomiting, diarrhea. MD elicited complaint: dysuria Related Data Home Medications ?Medication ?Instructions ?Recorded ?Confirmed ?Last Taken ?Type montelukast 10 mg tablet 10 mg PO DAILY 02/25/21 04/02/24 10/08/22 08:00 History albuterol sulfate 90 mcg/actuation 2 puff inhalation Q4H PRN Wheezing 09/27/22 04/02/24 10/08/22 08:00 History aerosol inhaler fluticasone propionate 50 1 spray intranasal DAILY PRN 09/27/22 04/02/24 10/08/22 08:00 History mcg/actuation nasal Allergic Symptoms spray,suspension montelukast 10 mg tablet 10 mg PO DAILY 04/02/24 04/02/24 Unknown History semaglutide 1 mg/dose (4 mg/3 mL) 1 mg subcut WEEKLY 04/02/24 04/02/24 Unknown History subcutaneous pen injector Allergies Allergy/AdvReac Type Severity Reaction Status Date / Time Sulfa (Sulfonamide Allergy Mild Rash Verified 04/02/24 10:18 Antibiotics) Review of Systems Review of Systems: All systems reviewed & are unremarkable except as noted in HPI and below Constitutional: Constitutional: Denies chills, Denies fever(s), Denies headache(s), Denies malaise and Denies weakness Eyes: Eyes: Denies change in vision, Denies eye discharge and Denies irritation ENT: Denies otalgia, Denies headache(s), Denies nasal congestion, Denies nasal discharge, Denies sinus pain and Denies sore throat Cardiovascular: Cardiovascular: Denies chest pain, Denies edema, Denies palpitations and Denies dyspnea Respiratory: Respiratory: Denies cough and Denies dyspnea Gastrointestinal: Gastrointestinal: Denies abdominal pain, Denies diarrhea, Denies nausea and Denies vomiting Genitourinary: Genitourinary: Denies hematuria, Reports nocturia, Reports dysuria, Denies flank pain, Reports urinary urgency and Reports vaginal pruritus Musculoskeletal: Musculoskeletal: Denies back pain and Denies numbness Integumentary/Breasts: Skin/Breast: Denies pruritus and Denies rash Neurologic: Denies headache(s), Denies numbness and Denies weakness Psychiatric: Psychiatric: Reports no additional psychiatric complaints Endocrine: Endocrine: Denies palpitations PMFSH Past Medical History Medical History History of breast cancer GERD (gastroesophageal reflux disease) Reactive airway disease Surgical History Surgical History H/O lumpectomy History of delivery Family History Family History Mother No pertinent past medical history Diverticulitis large intestine Social History Social History Smoking status: Never smoker Alcohol intake: never Substance use: never Substance use type: does not use Lack of Transportation: No Lack of Food: Never True Current Housing: I Have Housing Concerned About Future Housing: No Difficulty Paying Gas/Electric Bills: No Difficulty Paying for Meds: No Currently Unemployed: No Education: Bachelor's Degree Difficulty w/ Childcare or Family Care: No Living arrangements: with family Gender identity (if verbalized by the patient): Female Spiritual care concerns: No Comments At time of signature, agree with nursing past medical, surgical, social and family history. There is no relevant family history pertinent to the presenting complaint. Exam Const: General: cooperative, healthy appearing, comfortable, no acute distress and well nourished Nutritional Appearance: well nourished Orientation/consciousness: patient oriented x3 HENMT: Head: normocephalic and atraumatic Ears: external ears normal Face/Nose/Sinus: Normal external nose present, Normal nares present and normal facial exam Face and sinus: normal facial exam Eyes: General: appearance normal, both eyes and all related structures Pupils: Equal, round and reactive pupils present EOM: EOMs intact bilaterally Neck: Neck: normal visual inspection, full ROM and supple Chest: Chest palpation & inspection: normal inspection of the chest Resp: Effort & Inspection: normal respiratory effort and able to speak in complete sentences Cardio: Rate: tachycardic Rhythm: regular rhythm GI: Inspection: normal to inspection GI Palp: No abdominal tenderness and Yes Soft to palpation : General: Yes no CVA tenderness Back/Spine/Pelvis: Back: no CVA tenderness Skin: General skin exam: normal color and no rashes or lesions noted Neuro: General: patient oriented x3 and moves all extremities Cranial nerves: Yes Equal, round and reactive pupils present Extrem: General: normal to inspection and full ROM Psych: Appearance: grossly normal and well kempt Course Course Emergency Course: Patient is aware of diagnosis, understands and agrees to treatment plan. Anticipatory guidance given. Patient agrees to follow-up as directed and is aware of reasons to seek care at the emergency department. Portions of this record may have been created with voice recognition software Level of Care: Express Care Visit Vital Signs Vital signs: Vital Signs Temperature 36.3 C L 11/01/24 11:41 Pulse Rate 106 H 11/01/24 11:41 Respiratory Rate 16 11/01/24 11:41 Blood Pressure 128/53 L 11/01/24 11:41 Pulse Oximetry 100 11/01/24 11:41 Oxygen Delivery Room Air 11/01/24 11:41 Temperature 36.3 C L 11/01/24 11:41 Pulse Rate 106 H 11/01/24 11:41 Respiratory Rate 16 11/01/24 11:41 Blood Pressure 128/53 L 11/01/24 11:41 Pulse Oximetry 100 11/01/24 11:41 Oxygen Delivery Room Air 11/01/24 11:41 Reviewed MDM - Female Genitourinary MDM Narrative Medical decision making narrative: Exam findings and UA show probable UTI; patient is non-toxic appearing and is in no distress. No CMT, adnexal tenderness, or evidence of pelvic etiology. Patient is appropriate for outpatient treatment and follow-up. Differential Diagnosis Differential diagnosis: Likely urinary tract infection, bacterial vaginosis, trichomoniasis, cervicitis, vaginitis, cystitis and other (Vaginal yeast infection) Medical Records Attestation: I reviewed the patient's medical records. Lab Data Attestation: I reviewed the patient's lab results. Labs: Lab Results 11/01/24 Range/Units 11:45 POC Urine Color Yellow POC Urine Clarity Cloudy POC Urine pH 5.5 POC Ur Specif [place] 1.025 POC Urine Protein Negative (Negative) POC Ur Glucose (UA) Negative (Negative) POC Urine Ketones Negative (Negative) POC Urine Blood 1+ (Negative) POC Urine Nitrite Negative (Negative) POC Urine Bilirubin Negative (Negative) POC Urine Urobilinogen 0.2 POC U Leukocyte Esteras 2+ (Negative) Discharge Plan Discharge Clinical Impression: Vaginal yeast infection Urinary tract infection Qualifiers: Urinary tract infection type: acute cystitis Hematuria presence: with hematuria Qualified Code(s): N30.01 - Acute cystitis with hematuria Patient Disposition: Home, Self-Care Condition: Stable Instructions: Yeast Infection (ED), Urinary Tract Infection in Older Adults (ED) Additional Instructions: We will send a urine culture to the lab, based on your symptoms and urine dip we will start treatment today. If culture comes back and bacteria is not susceptible to antibiotic, your prescription may change. Your symptoms should improve within a day of starting antibiotics, but you should finish all the antibiotic pills you get. Otherwise your infection might come back Continue with increased water intake. Take Tylenol or ibuprofen as needed for pain or fever. Follow-up with primary care provider for urine recheck or see ER visit if condition worsens with high fever, nausea, vomiting, severe back pain Take 1 pill after antibiotics are complete and 3 days later take additional pill. Do not use any scented soaps or pads. Make sure to always urinate after sex. Use non scented, non flavored condoms. Do not sit and bath with scented soaps or oils. Where cotton underwear and change underwear after exercise. Patient Language: Guamanian Prescriptions: New fluconazole 150 mg tablet 150 mg PO ONCE Qty: 2 0RF Rx Instructions: as a single dose after antibiotics are complete. If symptoms persist, take second dose 3 days later. nitrofurantoin monohyd/m-cryst 100 mg capsule 100 mg PO Q12H 5 Days Qty: 10 0RF Rx Instructions: must administer with a meal/food No Action montelukast 10 mg tablet 10 mg PO DAILY montelukast 10 mg tablet 10 mg PO DAILY semaglutide 1 mg/dose (4 mg/3 mL) pen injector 1 mg subcut WEEKLY albuterol sulfate 90 mcg/actuation HFA aerosol inhaler 2 puff INHALATION Q4H PRN (Reason: Wheezing) fluticasone propionate 50 mcg/actuation spray,suspension 1 spray INTRANASAL DAILY PRN (Reason: Allergic Symptoms) Follow-up/Referrals: Jared,ISABELLE Crystal [Primary Care Provider] - 3 Days Time of Disposition: 12:32
[2024-11-01 11:41] VITALS: BP 128/53; PULSE 106; RESP 16; TEMP 36.3; O2SAT 100
[2024-11-01 11:58] LABS: EDUAAPPEAR Cloudy; EDUABILI Negative (Negative); EDUABLOOD 1+ (Negative); EDUACOLOR1 Yellow; EDUAGLUCOSE Negative (Negative); EDUAKETONE Negative (Negative); EDUALEUKO 2+ (Negative); EDUANITRATE Negative (Negative); EDUAPH 5.5; EDUAPROTEIN Negative (Negative); EDUASPGRAVITY 1.025; EDUAUROBILI 0.2
== END 2024-11-01 12:38 | disposition home or self-care (01) ==
PROVIDERS: Emergency Provider Nurse Practitioner Family; PCP Physician Assistant
DX: B37.31 Acute candidiasis of vulva and vagina (principal); N30.01 Acute cystitis with hematuria; B96.20 Unspecified Escherichia coli [E. coli] as the cause of diseases classified elsewhere; K21.9 Gastro-esophageal reflux disease without esophagitis; Z85.3 Personal history of malignant neoplasm of breast
CPT/HCPCS: 81003; 87086; 87186; 99213; G0463

== ENCOUNTER 2025-03-22 15:48 | Outpatient (CLI) | payer MEDICARE, SELFPAY ==
--- NOTE | ~2025-03-22 | XR_ITS ---
EXAMINATION: XR scoliosis survey DATE: 03/22/2025 16:57 INDICATION: Segmental and somatic dysfunction cervical region TECHNIQUE: AP and lateral views of the cervical, thoracic and lumbar spine as well as open-mouth odon toid view of the cervical spine were obtained. COMPARISON: None. FINDINGS: 8 degrees thoracolumbar levocurvature with 5 degrees compensatory mid thoracic dextrocurvature. Verte bral body heights are normal throughout. There is mild reversal of the normal lordosis in the lower t horacic spine with severe disc height loss with moderate to severe bilateral uncovertebral osteoarthr itis at C5-C6 and C6-C7. Small posterior endplate osteophytes contribute to mild central canal stenos is at both these levels. Normal sagittal alignment of the thoracic spine. Moderate disc height loss a t multiple levels throughout the mid thoracic spine. 2 mm anterolisthesis L4 on L5. There is mild dis c height loss at L3-L4 and L4-L5. Severe facet bilateral facet osteoarthritis at L3-L4 through L5-S1. Dystrophic soft tissue calcification in the anterior right chest wall project over the right lower l ronaldo. Lungs are clear with no focal airspace opacities, pulmonary edema, pleural effusion or pneumotho rax. Heart size is normal. Pectus excavatum. IMPRESSION: 1. Mild S-shaped curvature of the mid to lower thoracic and upper lumbar spine. 2. Severe lower cervical, moderate mid thoracic and mild lumbar spondylosis. Reviewed, dictated and finalized at location A.
== END 2025-03-22 15:49 | disposition home or self-care (01) ==
PROVIDERS: PCP Physician Assistant
DX: M41.34 Thoracogenic scoliosis, thoracic region (principal); M41.86 Other forms of scoliosis, lumbar region; M47.812 Spondylosis without myelopathy or radiculopathy, cervical region; M47.814 Spondylosis without myelopathy or radiculopathy, thoracic region; M47.816 Spondylosis without myelopathy or radiculopathy, lumbar region
CPT/HCPCS: 72082